=== PATIENT | male | born 1950 | race Caucasian/White ===

== ENCOUNTER 2017-10-21 23:09 | Emergency (ER) | payer MEDICARE, OTHER, SELFPAY ==
[2017-10-21 23:22] VITALS: BP 147/90; PULSE 68; RESP 18; O2SAT 98
[2017-10-21 23:32] VITALS: PULSE 68; RESP 18; O2SAT 98; BMI 31.6
--- NOTE | 2017-10-21 23:32 | ED_ITS ---
HPI - Extremity Injury (Lower) General Chief Complaint: Extremity Injury, Lower Stated Complaint: SEVERE BLEED ON LEFT LEG Time Seen by Provider: 10/21/17 23:28 Source: patient, family, RN notes reviewed and old records reviewed Mode of arrival: ambulatory Limitations: no limitations History of Present Illness HPI Narrative: Patient is a 67-year-old male who presents with left leg bleeding. He originally injured it about 6 weeks ago it was quite a deep laceration he said the stitches stayed in for about 18 days. There are 2 areas that have had scabs on them and not quite healed. 4 days ago when the scab fell off and he was bleeding. He got the bleeding to stop. Today he was out in the yd doing quite a bit of work he took a shower and the said that blood squirted all over the bathroom. They did apply a pressure dressing of the bleeding has now stopped. He denies any new numbness or tingling. Related Data Home Medications Medication Instructions Recorded Confirmed ranitidine HCl 150 mg PO BID #0 05/14/17 aspirin #0 09/03/17 lisinopril-hydrochlorothiazide 1 tab PO QDAY #90 09/03/17 Previous Rx's Medication Instructions Recorded doxycycline hyclate 100 mg PO Q12H #20 cap 09/03/17 hydrocodone-acetaminophen [[place]] 1 - 2 tab PO Q6HP PRN #14 tab 09/03/17 hydrocodone-acetaminophen [[place]] 1 tab PO Q4HP PRN #10 tab 09/10/17 Review of Systems Review of Systems All systems reviewed & are unremarkable except as noted in HPI and below Constitutional Denies chills, Denies fever(s), Denies lethargy and Denies weakness Cardiovascular Denies chest pain, Denies irregular heart rhythm, Denies lightheadedness, Denies palpitations, Denies dyspnea, Denies dyspnea on exertion and Denies orthopnea Respiratory Denies cough, Denies dyspnea, Denies dyspnea on exertion and Denies wheezing Musculoskeletal Reports numbness (At site of laceration from initial injury) Integumentary/Breasts Reports system reviewed and no additional complaints, except as docu Neurologic Reports numbness (At site of laceration from initial injury) and Denies weakness Endocrine Denies palpitations Allergic/Immunologic Denies wheezing [facility] Social History Smoking Status: Never smoker Exam Initial Vital Signs Initial Vital Signs: Vital Signs Pulse Rate 68 10/21/17 23:22 Respiratory Rate 18 10/21/17 23:22 Blood Pressure 147/90 H 10/21/17 23:22 Pulse Oximetry 98 10/21/17 23:22 Const General: cooperative and well developed Nutritional Appearance: well nourished Orientation: alert, awake, oriented x3 and not confused Resp Effort & Inspection: normal respiratory effort and able to speak in complete sentences Cardio Pulses: normal peripheral pulses Skin Other: Scarred laceration noted on left leg. There is a small area less then 0.25cm that is not healed but now has a scab and there is no active bleeding Neuro General: alert, awake and oriented x3 Course Hospital Course: Site of previous bleeding was identified a Surgicel placed and Coban placed. No further bleeding patient was ambulatory. Recommended keeping dressing on for the next few days and possibly needs to see wound care if still not healing. Vital Signs - 8 hr 10/21/17 23:22 10/21/17 23:32 10/21/17 23:58 Pulse Rate 68 68 61 Respiratory Rate 18 18 16 Blood Pressure 131/79 H Blood Pressure [Right Arm] 147/90 H Pulse Oximetry 98 98 96 Discharge Plan Departure Patient Disposition: Home, Self-Care Clinical Impression: Leg laceration Discharge Date/Time: 10/21/17 23:59 Interventions: ED Discharge Assessment Last Done: 10/21/17 23:58 Instructions: DI for Laceration Repair -- Complex Suture Activity Restrictions/Additional Instructions: *You have been diagnosed with left leg laceration *What to do: Recommend dressing on it at all times for the next couple of days , if it continues to be nonhealing you may require wound care evaluation *Take medications as directed *Follow up with your primary care provider in 2-3 days, call wound care tomorrow to schedule appointment in the next 1-2 week *Return to ER if you should have any new, worsening or concerning symptoms Prescriptions: No Action ranitidine HCl 150 MG capsule 150 mg PO BID Qty: 0 RF: 0 aspirin 81 mg Tablet,Delayed Release (Dr/Ec) Qty: 0 RF: 0 lisinopril-hydrochlorothiazide 20 MG/25 MG tablet 1 tab PO QDAY Qty: 90 RF: 0 doxycycline hyclate 100 MG capsule 100 mg PO Q12H Qty: 20 RF: 0 hydrocodone-acetaminophen [[place]] 5 MG/325 MG tablet 1 - 2 tab PO Q6HP PRNQty: 14 RF: 0 hydrocodone-acetaminophen [[place]] 5 MG/325 MG tablet 1 tab PO Q4HP PRNQty: 10 RF: 0 Referrals: Clayton Jimenez MD [Physician] - Samson Morales MD [Primary Care Provider] -
[2017-10-21 23:58] VITALS: BP 131/79; PULSE 61; RESP 16; O2SAT 96
== END 2017-10-21 23:59 | disposition home or self-care (01) ==
PROVIDERS: Emergency Provider Emergency Medicine; Family Provider Family Medicine; PCP Family Medicine
DX: S81.812A Laceration without foreign body, left lower leg, initial encounter (principal)
CPT/HCPCS: 99282

== ENCOUNTER 2017-10-30 06:04 | Emergency (ER) | payer MEDICARE, OTHER, SELFPAY ==
[2017-10-30 06:17] VITALS: BP 108/63; PULSE 74; RESP 16; TEMP 36.4; O2SAT 96
[2017-10-30 06:23] VITALS: BP 108/63; PULSE 74; RESP 16; TEMP 36.4; O2SAT 96; BMI 31.6
--- NOTE | 2017-10-30 06:31 | ED_ITS ---
HPI - Extremity Injury (Lower) General Stated Complaint: Laceration Time Seen by Provider: 10/30/17 06:05 Source: patient Mode of arrival: ambulatory Limitations: no limitations History of Present Illness HPI Narrative: 67-year-old male here for evaluation of bleeding wound to his left lower extremity. Approximately 2 months ago he sustained a chainsaw wound to his left lower extremity. I have seen him here in the emergency department in the past for complications secondary to this and for concerns of infection. Patient states that this morning he woke up to go use the restroom and a spot on the wound started to bleed. He states that this happened approximately 1 week ago and he was also seen in this emergency department for it. He states that by the time he got to the emergency department at that visit the bleeding has stopped. He states that yesterday he saw his primary doctor regarding this and had a consult placed to see the general surgeons for further evaluation. He does not have an appointment yet set up. He states that this morning he got up to go use the restroom and it started to bleed from the same spot the that it did 1 week ago. He states that he held pressure on it but it continued to bleed. His called 911 and he was transported here to the emergency department. He arrived with bandages in place. Related Data Home Medications Medication Instructions Recorded Confirmed ranitidine HCl 150 mg PO BID #0 05/14/17 aspirin #0 09/03/17 lisinopril-hydrochlorothiazide 1 tab PO QDAY #90 09/03/17 Previous Rx's Medication Instructions Recorded doxycycline hyclate 100 mg PO Q12H #20 cap 09/03/17 hydrocodone-acetaminophen [[place]] 1 - 2 tab PO Q6HP PRN #14 tab 09/03/17 hydrocodone-acetaminophen [[place]] 1 tab PO Q4HP PRN #10 tab 09/10/17 Review of Systems Constitutional Denies chills, Denies fever(s), Denies lethargy and Denies weakness Musculoskeletal Comments: Bleeding from the wound on the posterior aspect of his left calf Integumentary/Breasts Comments: Cut to the back of his left calf Neurologic Denies weakness Comments: No change in sensation to left lower extremity PFSH Social History Smoking Status: Never smoker Exam Initial Vital Signs Initial Vital Signs: Vital Signs Temperature 97.6 F 10/30/17 06:17 Pulse Rate 74 10/30/17 06:17 Respiratory Rate 16 10/30/17 06:17 Blood Pressure 108/63 10/30/17 06:17 Pulse Oximetry 96 10/30/17 06:17 Resp Effort & Inspection: normal respiratory effort Cardio Pulses: dorsalis pedis present Other: Capillary refill less than 2 sec Skin Other: Patient with a approximately 15 cm scar to the back of his left calf that is healing well. Has 1 area approximately the midpoint of this that is several mm long where the patient states it was bleeding from this area. Has approximately 3 cm area of swelling under this area. It was not actively bleeding the time of my exam. Neuro Other: Sensation intact to light touch left lower extremity Extrem Other: Left knee unremarkable Left ankle unremarkable See skin section for description of wound to left calf Course Vital Signs - 8 hr 10/30/17 06:17 Temperature 97.6 F Pulse Rate 74 Respiratory Rate 16 Blood Pressure [Right Arm] 108/63 Pulse Oximetry 96 MDM - Extremity Injury (Lower) MDM Narrative Medical decision making narrative: Patient was not bleeding here in the emergency department. Does have a small area of the wound that seems to be not healing very well. Palpation over this area does not have any signs of pulsation or thrills. Patient thought that he could come to the emergency department today to see the surgeon to have this definitively treated. Informed him that his exam today and the fact that it stop bleeding does not warrant an emergent trip to the operating room. Bandages were replaced over the area. He was instructed that following up with a general surgeon was not a reasonable plan. He was given supplies to take care of this if it happened again at home. His is at bedside his discussions. Patient expressed understanding. Discharge Plan Departure Patient Disposition: Home, Self-Care Clinical Impression: Bleeding from wound Instructions: DI for Wound Dehiscence, Skin Wound Activity Restrictions/Additional Instructions: I recommend that you call on Wednesday to schedule an appointment with the general surgeon that was set up for you by your primary doctor. Recommend that you keep a bandage over the area likely discussed and bandaged the area as needed for any future bleeding. Recommend that you hold on taking her aspirin for the next several days as this is potentially complicating the issue. You may return to the emergency department for any new or worsening symptoms Prescriptions: No Action ranitidine HCl 150 MG capsule 150 mg PO BID Qty: 0 RF: 0 aspirin 81 mg Tablet,Delayed Release (Dr/Ec) Qty: 0 RF: 0 lisinopril-hydrochlorothiazide 20 MG/25 MG tablet 1 tab PO QDAY Qty: 90 RF: 0 doxycycline hyclate 100 MG capsule 100 mg PO Q12H Qty: 20 RF: 0 hydrocodone-acetaminophen [[place]] 5 MG/325 MG tablet 1 - 2 tab PO Q6HP PRNQty: 14 RF: 0 hydrocodone-acetaminophen [[place]] 5 MG/325 MG tablet 1 tab PO Q4HP PRNQty: 10 RF: 0
--- NOTE | 2017-10-30 06:32 | PC.NURSE ---
provider applied telfa, gauze roll for direct pressure and alayna bandage.
== END 2017-10-30 06:43 | disposition home or self-care (01) ==
PROVIDERS: Emergency Provider Emergency Medicine; Family Provider Family Medicine; PCP Family Medicine
DX: T81.30XA Disruption of wound, unspecified, initial encounter (principal)
CPT/HCPCS: 99282; 99283

== ENCOUNTER 2018-03-22 12:05 | Emergency (ER) | payer MEDICARE, OTHER, SELFPAY ==
[2018-03-22 12:12] VITALS: BP 131/79; PULSE 86; RESP 22; TEMP 37.4; O2SAT 97
--- NOTE | 2018-03-22 12:41 | ED_ITS ---
HPI - Abdominal Pain General Chief Complaint: Abdominal Pain Stated Complaint: thinks diverticulitis is acting up Time Seen by Provider: 03/22/18 12:19 Source: patient and family Mode of arrival: ambulatory Limitations: no limitations History of Present Illness HPI narrative: Patient complains of left lower quadrant pain since yesterday. He states it feels like his diverticulitis that he has to get before his bowel resection, which was 18-24 months ago. He states he has felt a little nauseated but has not been vomiting. He denies constipation. The patient has had some very loose stools. Patient states he has not had any trouble with diverticulitis since the bowel resection. He denies any fevers, chest pain, shortness breath, or lower extremity swelling. He denies any urinary symptoms. No blood in his stools. MD complaint: abdominal pain Onset (ago): day(s) Pain Consistency: constant Location: LLQ Severity: moderate Severity scale (1-10): 6 Quality: stabbing Radiation: none Migration to: no migration Relieving factors: nothing Exacerbating factors: movement Context: other (See above) Related Data Home Medications Medication Instructions Recorded Confirmed ranitidine HCl 150 mg PO BID #0 05/14/17 03/22/18 aspirin 1 tab PO DAILY #0 09/03/17 03/22/18 lisinopril-hydrochlorothiazide 1 tab PO QDAY #90 09/03/17 03/22/18 Previous Rx's Medication Instructions Recorded hydrocodone-acetaminophen 2 tab PO Q4-6H PRN #20 tab 03/22/18 levofloxacin [Levaquin] 500 mg PO DAILY #14 tab 03/22/18 metronidazole 500 mg PO BID #28 tab 03/22/18 ondansetron [Zofran ODT] 4 mg PO QID PRN #14 tab 03/22/18 Allergies Allergy/AdvReac Type Severity Reaction Status Date / Time No Known Drug Allergies Allergy Verified 03/22/18 13:27 Review of Systems Review of Systems All systems reviewed & are unremarkable except as noted in HPI and below Constitutional Denies chills, Denies fever(s), Denies lethargy and Denies weakness Eyes Denies change in vision, Denies eye discharge, Denies irritation and Denies loss of vision ENT Ears, Nose, Mouth, and Throat: Denies change in voice, Denies neck pain and Denies sore throat Cardiovascular Denies chest pain, Denies irregular heart rhythm, Denies lightheadedness, Denies palpitations, Denies dyspnea, Denies dyspnea on exertion and Denies orthopnea Respiratory Denies cough, Denies dyspnea, Denies dyspnea on exertion and Denies wheezing Gastrointestinal Gastrointestinal: Reports abdominal pain, Denies change in bowel habits, Denies diarrhea, Denies nausea and Denies vomiting Genitourinary Denies hematuria, Denies flank pain, Denies urinary incontinence and Denies urinary urgency Musculoskeletal Denies neck pain Integumentary/Breasts Denies pruritus, Denies erythema, Denies rash and Denies wounds Neurologic Denies confusion, Denies loss of vision and Denies weakness Psychiatric Denies anxiety, Denies confusion, Denies depression, Denies homicidal ideation and Denies suicidal ideation Endocrine Denies palpitations Hematologic/Lymphatic Denies easy bruising Allergic/Immunologic Denies wheezing [facility] Medical History Diverticulitis (Acute) Nephrolithiasis (Chronic) Laceration of lower leg, complicated (Resolved) Hypotension (Resolved) Leg laceration (Resolved) Chest pain (Resolved) Surgical History History of colon resection (Acute) Social History Smoking Status: Never smoker Exam Initial Vital Signs Initial Vital Signs: Vital Signs Temperature 99.4 F 03/22/18 12:12 Pulse Rate 86 03/22/18 12:12 Respiratory Rate 22 03/22/18 12:12 Blood Pressure 131/79 03/22/18 12:12 Pulse Oximetry 97 03/22/18 12:12 Const General: cooperative and well developed Nutritional Appearance: well nourished Orientation: alert, awake, oriented x3 and not confused HENMI Head: normocephalic and atraumatic Ears: external ears normal and TM's normal bilaterally Nose: external nose normal and No nasal discharge Face and sinus: sinuses nontender, face symmetric, no sinus tenderness and No dry mucous membranes Mouth: oral mucosae normal and moist mucous membranes Teeth and gingiva: dentition normal Throat: tonsils normal and uvula midline Eyes General: appearance normal, both eyes and all related structures Eyelids: eyelids normal Conjunctivae: conjunctivae normal Sclera: sclerae normal Pupils: PERRL EOM: EOM intact bilaterally Neck Neck: normal visual inspection, trachea midline, No lymphadenopathy, No midline deformity and No JVD Lymphatic: No lymphedema Chest Chest: normal inspection of the chest Resp Effort & Inspection: normal respiratory effort, able to speak in complete sentences, no respiratory distress and no use of accessory muscles Auscultation: clear to auscultation bilaterally, no rales, no rhonchi and no wheezes Cardio Rate: regular rate Rhythm: regular rhythm Heart Sounds: no click, no gallops, no murmurs and no rubs Pulses: normal peripheral pulses GI Inspection: non-distended Palpation: soft, no hepatosplenomegaly, No guarding, No pulsatile mass and tender (Moderate, left lower quadrant. No rebound or guarding.) Auscultation: normal bowel sounds Back/Spine/Pelvis Back: No CVA tenderness Cervical Spine: cervical ROM normal and No pain with cervical ROM Thoracic/Lumbar Spine: thoracic and lumbar spine normal to inspection Skin General: no rashes or lesions noted, No jaundice and No petechiae Neuro General: alert, oriented x3, gait normal and no focal motor deficits Speech: speech normal Extrem General: full ROM, no clubbing, cyanosis or edema, no pedal edema and no calf tenderness Psych Appearance: well kempt Mental Status: mental status grossly normal Attitude: cooperative Thought Content: normal and suicidality Judgment: judgment good Course Course Narrative: Patient was worked up with laboratory studies, and treated with IV fluids, Dilaudid, and Zofran. I did also feel that he should have a CT to evaluate his abdominal pain, and this was done. Orders Ordered: Discontinued Medications Al Hydrox/Mg Hydrox/Simethicone 20 ml/ Lidocaine HCl 15 ml 0 ml PO NOW ONE Stop: 03/22/18 16:13 Last Admin: 03/22/18 16:28 Dose: 15 ml Hydromorphone HCl (Dilaudid) 1 mg IV NOW ONE Stop: 03/22/18 13:54 Last Admin: 03/22/18 14:16 Dose: 1 mg Sodium Chloride (Normal Saline 0.9%) 1,000 mls @ 1,000 mls/hr IV BOLUS ONE Stop: 03/22/18 13:43 Last Infusion: 03/22/18 14:16 Dose: 0 mls/hr Admin: 03/22/18 12:52 Dose: 1,000 mls/hr Levofloxacin (Levaquin) 500 mg in 100 mls @ 100 mls/hr IV NOW ONE Stop: 03/22/18 15:55 Last Infusion: 03/22/18 16:17 Dose: 0 mls/hr Admin: 03/22/18 15:04 Dose: 100 mls/hr Metronidazole (Flagyl) 500 mg in 100 mls @ 100 mls/hr IV NOW ONE Stop: 03/22/18 15:55 Last Infusion: 03/22/18 17:39 Dose: 0 mls/hr Admin: 03/22/18 15:39 Dose: 100 mls/hr Ondansetron HCl (Zofran) 4 mg IV NOW ONE Stop: 03/22/18 13:54 Last Admin: 03/22/18 17:04 Dose: Not Given Ondansetron HCl (Zofran) 4 mg IV NOW ONE Stop: 03/22/18 17:46 Last Admin: 03/22/18 17:45 Dose: 4 mg Vital Signs - 8 hr 03/22/18 12:12 Temperature 99.4 F Pulse Rate 86 Respiratory Rate 22 Blood Pressure 131/79 Pulse Oximetry 97 MDM - Abdominal Pain Medical Records Attestation: I reviewed the patient's medical records. Lab Data Attestation: I reviewed the patient's lab results. Result diagrams: 03/22/18 12:40 03/22/18 12:40 Lab Results 03/22/18 03/22/18 Range/Units 12:40 12:40 WBC 15.8 H (4.5-11.0) X10^3/uL RBC 4.87 (4.5-5.9) X10^6/uL Hgb 14.9 (13.5-17.5) g/dL Hct 43.6 (41-53) % MCV 89.6 (80-100) fL MCH 30.7 (26-34) PG MCHC 34.3 (30-36) % RDW 16.3 H (11.6-14.8) % Plt Count 276 (150-400) X10^3/uL Neut % (Auto) 82.4 H (50-75) % Lymph % (Auto) 6.4 L (25-40) % Braxton % (Auto) 10.3 (3-14) % Eos % (Auto) 0.4 L (2-4) % Baso % (Auto) 0.5 (0-2) % Neut # (Auto) 94225 H (3984-1753) /uL Sodium 140 (137-145) mmol/L Potassium 4.1 (3.4-5.1) mmol/L Chloride 103 (98-107) mmol/L Carbon Dioxide 27 (22-32) mmol/L BUN 13 (9-20) mg/dL Creatinine 0.70 (0.66-1.25) mg/dL Estimated GFR > 60.0 (>60) mL/min BUN/Creatinine Ratio 18.6 (6-22) Glucose 106 (80-110) mg/dL Calcium 8.7 (8.4-10.2) mg/dL Total Bilirubin 1.3 (0.2-1.3) mg/dL AST 23 (17-59) IU/L ALT 34 (21-72) IU/L Alkaline Phosphatase 92 (38-126) U/L Total Protein 7.1 (6.3-8.2) g/dL Albumin 4.1 (3.5-5.0) g/dL Globulin 3.0 (1.7-4.1) g/dL Albumin/Globulin Ratio 1.4 (1.0-2.8) Imaging Data CT scan - abdomen: Attestation: I personally reviewed and interpreted this imaging study as follows: Radiologist's impression: PROCEDURE: CT ABDOMEN PELVIS W CON INDICATIONS: LLQ abdominal pain TECHNIQUE: After the administration of intravenous contrast, 5 mm thick sections acquired from the diaphragm to the symphysis. 5 mm coronal and sagittal reformats were acquired. For radiation dose reduction, the following was used: automated exposure control, adjustment of mA and/or kV according to patient size. COMPARISON: None. FINDINGS: Image quality: Excellent. ABDOMEN: Lung bases: Lung bases are clear. Heart size is normal. Solid organs: Liver is normal in size and enhancement. There is what likely is a small hemangioma or cyst at the left posterior lateral segment Gallbladder appears normal. Biliary system is non dilated. Pancreas enhances normally. Spleen is normal in size and enhancement. No adrenal nodules. Kidneys demonstrate normal size and enhancement, without hydronephrosis. Peritoneum and bowel: Bowel loops demonstrate normal wall thickness and caliber. No free fluid or air. Nodes and vessels: No retroperitoneal or mesenteric adenopathy by size criteria. Aorta and inferior vena cava are normal in size. Miscellaneous: No ventral hernias. PELVIS: Genitourinary: Bladder wall thickness is normal. Miscellaneous: No inguinal hernias or adenopathy. Relatively prominent inflammation involves the proximal sigmoid colon with acute diverticulitis no peridiverticular abscess. This is proximal to an area of an enteric staple line at the middle third of the sigmoid colon. Bones: No suspicious bony lesions. No vertebral body compression fractures. IMPRESSION: Moderately severe acute diverticulitis without peridiverticular abscess involving the proximal third of the sigmoid colon just proximal to an enteric staple line. A small 1.2 mm cyst or small hemangioma is present at the posterior border of the left lateral hepatic segment. Normal-appearing gallbladder, no sign of appendicitis. Dictated by: Charlie Cummings M.D. on 03/22/2018 at 14:23 Approved by: Charlie Cummings M.D. on 03/22/2018 at 14:26 [facility] Narrative Medical decision making narrative: Patient was found to have diverticulitis, non perforated, on his CT scan. He was started on antibiotics for this, and was advised of the diagnosis. We have discussed home management of his symptoms , as well as the need for antibiotics at home, and we have also discussed the usual indications for return. Patient is stable for discharge home. Discharge Plan Departure Patient Disposition: Home Clinical Impression: Diverticulitis Discharge Date/Time: 03/22/18 18:01 Interventions: ED Discharge Assessment Last Done: 03/22/18 17:50 Instructions: DI for Diverticulitis Prescriptions: New hydrocodone-acetaminophen 5-325 mg tablet 2 tab PO Q4-6H PRN (Reason: pain) Qty: 20 RF: 0 metronidazole 500 mg tablet 500 mg PO BID Qty: 28 RF: 0 levofloxacin [Levaquin] 500 mg tablet 500 mg PO DAILY Qty: 14 RF: 0 ondansetron [Zofran ODT] 4 mg tablet,disintegrating 4 mg PO QID PRN (Reason: nausea and vomiting) Qty: 14 RF: 0 No Action ranitidine HCl 150 MG capsule 150 mg PO BID Qty: 0 RF: 0 aspirin 81 mg Tablet,Delayed Release (Dr/Ec) 1 tab PO DAILY Qty: 0 RF: 0 lisinopril-hydrochlorothiazide 20 MG/25 MG tablet 1 tab PO QDAY Qty: 90 RF: 0 Referrals: Samson Morales MD [Primary Care Provider] -
[2018-03-22] MEDS: SODIUM CHLORIDE 0.9% 1,000 ML 1000 ML IV (12:52)
[2018-03-22 12:54] LABS: Add Manual Diff / Slide Review NO; Basophils Percent Auto 0.5 % (0-2); Eosinophils Percent Auto 0.4 % (2-4); Hematocrit 43.6 % (41-53); Hemoglobin 14.9 g/dL (13.5-17.5); Lymphocytes Percent Auto 6.4 % (25-40); Mean Corpuscular HGB Conc 34.3 % (30-36); Mean Corpuscular Hemoglobin 30.7 PG (26-34); Mean Corpuscular Volume 89.6 fL (80-100); Monocytes Percent Auto 10.3 % (3-14); Neutrophils Absolute Auto 13000 /uL (3000-5900); Neutrophils Percent Auto 82.4 % (50-75); Platelet Count 276 X10^3/uL (150-400); Red Blood Cell Count 4.87 X10^6/uL (4.5-5.9); Red Cell Distribution Width 16.3 % (11.6-14.8); White Blood Cell Count 15.8 X10^3/uL (4.5-11.0)
[2018-03-22 12:59] LABS: Alanine Aminotransferase 34 IU/L (21-72); Albumin 4.1 g/dL (3.5-5.0); Albumin Globulin Ratio 1.4 (1.0-2.8); Alkaline Phosphatase 92 U/L (38-126); Aspartate Aminotransferase 23 IU/L (17-59); BUN Creatinine Ratio 18.6 (6-22); Bilirubin Total 1.3 mg/dL (0.2-1.3); Blood Urea Nitrogen 13 mg/dL (9-20); Calcium 8.7 mg/dL (8.4-10.2); Carbon Dioxide 27 mmol/L (22-32); Chloride 103 mmol/L (98-107); Estimated Glomerular Filt Rate > 60.0 mL/min (>60); Glucose 106 mg/dL (80-110); HEMOLYSIS 26 (0-50); Potassium 4.1 mmol/L (3.4-5.1); Sodium 140 mmol/L (137-145); Total Protein 7.1 g/dL (6.3-8.2)
--- NOTE | 2018-03-22 14:04 | DI.CT.S_ITS ---
PROCEDURE: CT ABDOMEN PELVIS W CON INDICATIONS: LLQ abdominal pain TECHNIQUE: After the administration of intravenous contrast, 5 mm thick sections acquired from the diaphragm to the symphysis. 5 mm coronal and sagittal reformats were acquired. For radiation dose reduction, the following was used: automated exposure control, adjustment of mA and/or kV according to patient size. COMPARISON: None. FINDINGS: Image quality: Excellent. ABDOMEN: Lung bases: Lung bases are clear. Heart size is normal. Solid organs: Liver is normal in size and enhancement. There is what likely is a small hemangioma or cyst at the left posterior lateral segment Gallbladder appears normal. Biliary system is non dilated. Pancreas enhances normally. Spleen is normal in size and enhancement. No adrenal nodules. Kidneys demonstrate normal size and enhancement, without hydronephrosis. Peritoneum and bowel: Bowel loops demonstrate normal wall thickness and caliber. No free fluid or air. Nodes and vessels: No retroperitoneal or mesenteric adenopathy by size criteria. Aorta and inferior vena cava are normal in size. Miscellaneous: No ventral hernias. PELVIS: Genitourinary: Bladder wall thickness is normal. Miscellaneous: No inguinal hernias or adenopathy. Relatively prominent inflammation involves the proximal sigmoid colon with acute diverticulitis no peridiverticular abscess. This is proximal to an area of an enteric staple line at the middle third of the sigmoid colon. Bones: No suspicious bony lesions. No vertebral body compression fractures. IMPRESSION: Moderately severe acute diverticulitis without peridiverticular abscess involving the proximal third of the sigmoid colon just proximal to an enteric staple line. A small 1.2 mm cyst or small hemangioma is present at the posterior border of the left lateral hepatic segment. Normal-appearing gallbladder, no sign of appendicitis. Dictated by: Charlie Cummings M.D. on 03/22/2018 at 14:23 Approved by: Charlie Cummings M.D. on 03/22/2018 at 14:26
[2018-03-22 14:16] VITALS: BP 120/77; PULSE 73; RESP 16; O2SAT 98
[2018-03-22] MEDS: HYDROMORPHONE 1 MG INJ IV (14:16)
[2018-03-22] MEDS: levoFLOXacin 500 MG/100 ML PIGGYBACK 100 MG IV (15:04)
[2018-03-22 15:19] VITALS: BP 103/56; PULSE 73; RESP 14; O2SAT 95
[2018-03-22] MEDS: metroNIDAZOLE 500 MG/100 ML PIGGYBACK 100 MG IV (15:39)
[2018-03-22 16:12] VITALS: BP 97/68
[2018-03-22] MEDS: MAG HYDROX/ALUMINUM/SIMETH SUS 20 ML, LIDOCAINE VISCOUS 2% 15 ML PO (16:28)
[2018-03-22 17:45] VITALS: BP 116/66; PULSE 85; RESP 15; TEMP 36.6; O2SAT 96
[2018-03-22] MEDS: ONDANSETRON 4 MG/2 ML INJ IV (17:45)
== END 2018-03-22 18:01 | disposition home or self-care (01) ==
PROVIDERS: Emergency Provider Emergency Medicine; Family Provider Family Medicine; PCP Family Medicine
DX: K57.92 Diverticulitis of intestine, part unspecified, without perforation or abscess without bleeding (principal)
CPT/HCPCS: 74177; 80053; 85025; 96361; 96365; 96366; 96368; 96375; 99283; 99285; J1170; J1956; J2405; Q9967

== ENCOUNTER 2018-11-15 19:03 | Emergency (ER) | payer MEDICARE, OTHER, SELFPAY ==
[2018-11-15 19:15] VITALS: BP 146/88; PULSE 78; RESP 16; TEMP 37; O2SAT 97; BMI 30.6
--- NOTE | 2018-11-15 19:22 | ED.URI ---
HPI - URI/Sore Throat <Peri Leroy PA-C - Last Filed: 11/15/18 20:29> General Chief Complaint: Headache Stated Complaint: RT SIDE OF FACE ACHES, SINUS PAIN Time Seen by Provider: 11/15/18 19:04 Source: patient Mode of arrival: ambulatory History of Present Illness HPI Narrative: This 68-year-old male complains of recurrent sinus infection. He states he has had cough, mostly dry but occasionally producing some phlegm, for over a week. He has not had any dyspnea or wheeze. He denies chest pain. states she thinks he had a temp 3 days ago because he felt quite warm, but no recorded fever at home. He states that he has pain in his face, mainly the right she and in his upper teeth that has worsened over several days. His ears feel somewhat congestion but not painful. He does not have nasal congestion or headache. Minimal watery eyes, no vision change. No weakness or mentation change. No recent travel or known exposures. Related Data Home Medications Medication Instructions Recorded Confirmed ranitidine HCl 150 mg PO BID #0 05/14/17 03/22/18 aspirin 1 tab PO DAILY #0 09/03/17 03/22/18 lisinopril-hydrochlorothiazide 1 tab PO QDAY #90 09/03/17 03/22/18 Previous Rx's Medication Instructions Recorded hydrocodone-acetaminophen 2 tab PO Q4-6H PRN #20 tab 03/22/18 levofloxacin [Levaquin] 500 mg PO DAILY #14 tab 03/22/18 metronidazole 500 mg PO BID #28 tab 03/22/18 ondansetron [Zofran ODT] 4 mg PO QID PRN #14 tab 03/22/18 amoxicillin-pot clavulanate 1 tab PO Q12H #20 tab 11/15/18 Allergies Allergy/AdvReac Type Severity Reaction Status Date / Time No Known Drug Allergies Allergy Verified 11/15/18 19:14 Review of Systems <Peri Leroy PA-C - Last Filed: 11/15/18 20:29> Review of Systems ROS Unobtainable: All systems reviewed & are unremarkable except as noted in HPI and below PFSH <Peri Leroy PA-C - Last Filed: 11/15/18 20:29> Medical History Diverticulitis (Acute) Nephrolithiasis (Chronic) Laceration of lower leg, complicated (Resolved) Hypotension (Resolved) Leg laceration (Resolved) Chest pain (Resolved) Surgical History History of colon resection (Acute) Social History Smoking Status: Never smoker Social History Smoking Status: Never smoker Exam <Peri Leroy PA-C - Last Filed: 11/15/18 20:29> Narrative Exam Narrative: GENERAL APPEARANCE: Patient sitting comfortably, in no distress. HEAD: Localized right maxillary tenderness EYES: PERRL, EOMI. EARS: Normal auditory canals, TMS intact with slightly dull light reflexes. ORAL CAVITY: Normal oropharynx. No broken teeth, gingival inflammation or caries THROAT: PND noted, no erythema or exudate NECK/THYROID: Neck supple, full range of motion, no cervical lymphadenopathy. LUNGS: Clear to auscultation bilaterally, clear to percussion, no cough on exam. HEART: RRR without murmur, nl S1, S2, no S3 or S4. NEUROLOGIC: Alert and oriented, normal speech, gait, coordination Initial Vital Signs Initial Vital Signs: Vital Signs Temperature 98.6 F 11/15/18 19:15 Pulse Rate 78 11/15/18 19:15 Respiratory Rate 16 11/15/18 19:15 Blood Pressure 146/88 H 11/15/18 19:15 Pulse Oximetry 97 11/15/18 19:15 <Thomas Vieira DO - Last Filed: 11/15/18 21:47> Initial Vital Signs Initial Vital Signs: Vital Signs Temperature 98.6 F 11/15/18 19:15 Pulse Rate 78 11/15/18 19:15 Respiratory Rate 16 11/15/18 19:15 Blood Pressure 146/88 H 11/15/18 19:15 Pulse Oximetry 97 11/15/18 19:15 Course <Peri Leroy PA-C - Last Filed: 11/15/18 20:29> Additional Information: Patient has had upper respiratory symptoms for more than 1 week, worsening localized sinus pain for several days similar to previous infections. Explained that most often these are viral and antibiotics not needed, however he is going to be traveling so was given a prescription to fill if symptoms are not improving as expected on their own. He agrees to return if any acutely worsening symptoms and follow up with PCP if not getting better Vital Signs - 8 hr 11/15/18 19:15 Temperature 98.6 F Pulse Rate 78 Respiratory Rate 16 Blood Pressure 146/88 H Pulse Oximetry 97 <Thomas Vieira DO - Last Filed: 11/15/18 21:47> Vital Signs - 8 hr 11/15/18 19:15 Temperature 98.6 F Pulse Rate 78 Respiratory Rate 16 Blood Pressure 146/88 H Pulse Oximetry 97 Discharge Plan Departure Patient Disposition: Home Clinical Impression: Bronchitis Sinusitis Qualifiers: Sinusitis location: maxillary Chronicity: acute Recurrence: not specified as recurrent Qualified Code(s): J01.00 - Acute maxillary sinusitis, unspecified Discharge Date/Time: 11/15/18 19:49 Interventions: ED Discharge Assessment Last Done: 11/15/18 19:47 Instructions: DI for Sinusitis, DI for Acute Bronchitis, DI for Sinus Headache Activity Restrictions/Additional Instructions: More than 90% of the time, sinus infections (sinusitis) and bronchitis (chest cold) are caused by viruses and resolve on their own in 7-14 days. Since you have had multiple episodes of sinusitis in the past that have not resolved without antibiotics and will be traveling, I have given you prescription to fill if you are not improving as expected. You can use an [id number] antihistamine such as Zyrtec (cetirizine) to help with cough and postnasal drip, and pseudoephedrine to help with congestion. Please continue your saline nasal spray. Please return if you acutely worsening symptoms as we talked about, or see your PCP if not resolving as expected Prescriptions: New amoxicillin-pot clavulanate 875-125 mg tablet 1 tab PO Q12H Qty: 20 RF: 0 No Action ranitidine HCl 150 MG capsule 150 mg PO BID Qty: 0 RF: 0 aspirin 81 mg Tablet,Delayed Release (Dr/Ec) 1 tab PO DAILY Qty: 0 RF: 0 lisinopril-hydrochlorothiazide 20 MG/25 MG tablet 1 tab PO QDAY Qty: 90 RF: 0 hydrocodone-acetaminophen 5-325 mg tablet 2 tab PO Q4-6H PRN (Reason: pain) Qty: 20 RF: 0 metronidazole 500 mg tablet 500 mg PO BID Qty: 28 RF: 0 levofloxacin [Levaquin] 500 mg tablet 500 mg PO DAILY Qty: 14 RF: 0 ondansetron [Zofran ODT] 4 mg tablet,disintegrating 4 mg PO QID PRN (Reason: nausea and vomiting) Qty: 14 RF: 0 Referrals: Samson Morales MD [Primary Care Provider] - <Thomas Vieira DO - Last Filed: 11/15/18 21:47> Cosign ED Attending Rondaature Attestation: I was available for consultation during this patient's emergency department encounter
== END 2018-11-15 19:49 | disposition home or self-care (01) ==
PROVIDERS: Emergency Provider Internal Medicine; Family Provider Family Medicine; PCP Family Medicine
DX: J40 Bronchitis, not specified as acute or chronic (principal); J01.00 Acute maxillary sinusitis, unspecified
CPT/HCPCS: 99282

== ENCOUNTER 2024-03-18 18:48 | Emergency (ER) | payer MEDICARE, OTHER, SELFPAY ==
[2024-03-18 18:50] VITALS: BP 157/84; PULSE 65; RESP 16; TEMP 36.6; O2SAT 97; BMI 29.8
--- NOTE | 2024-03-18 18:55 | DI.RAD.S_ITS ---
PROCEDURE: XR FINGER LT MIN 2V INDICATIONS: lacerated with table saw TECHNIQUE: AP hand, 2 views of the 3rd finger(s) acquired. COMPARISON: None. FINDINGS: Bones: Overlying bandaging limits evaluation. There appears to be a 3rd distal tuft fracture. No suspicious bony lesions. Soft tissues: No suspicious soft tissue calcifications. IMPRESSION: Overlying bandaging limits evaluation. There appears to be a 3rd distal tuft fracture. Small density projecting over the 2nd digit measuring 2 mm, foreign body versus small sclerotic focus. Dictated by: Ibrahima Colmenares M.D. on 03/18/2024 at 19:21 Approved by: Ibrahima Colmenares M.D. on 03/18/2024 at 19:22
--- NOTE | 2024-03-18 21:04 | DI.RAD.S_ITS ---
PROCEDURE: XR FINGER LT MIN 2V INDICATIONS: repeat with dressing removed, injury TECHNIQUE: AP hand, 2 views of the 3rd finger(s) acquired. COMPARISON: [facility], , XR FINGER LT MIN 2V, 03/18/2024, 18:58. FINDINGS: Bones: There is a minimal chip fracture seen involving the distal aspect of the distal phalanx of the 3rd finger. Degenerative changes are seen throughout, which are most prominent involving the 1st carpometacarpal joint. Milder degenerative changes are seen elsewhere. Soft tissues: Associated soft tissue injury seen. Second finger radiopaque foreign body again seen. IMPRESSION: Minimal chip fracture seen involving the distal aspect of the distal phalanx of the 3rd finger, with associated overlying soft tissue injury. Dictated by: Nick Linares M.D. on 03/18/2024 at 20:44 Approved by: Nick Linares M.D. on 03/18/2024 at 20:45
--- NOTE | 2024-03-18 23:10 | PC.NURSE ---
pt was using a saw when the tip of the 3rd digit of the left hand was caught in the blade bleeding is controlled at this time, pt's digit is rinsed with saline and placed in saline to soak, pt given warm blankets and delay explained
--- NOTE | 2024-03-18 23:55 | ED_ITS ---
HPI - Extremity Injury (Upper) General Chief Complaint: Extremity Injury, Upper Stated Complaint: cut tip of finger off Time Seen by Provider: 03/18/24 23:55 History of Present Illness HPI narrative: 73-year-old male right-handed was working with a table saw cutting wood proximally 6:00 p.m. earlier this evening, cut the end of his left 3rd finger with a table saw, laceration. No other injuries. He believes his last tetanus shot was less than 5 years ago. No known drug allergies. Related Data Home Medications Medication Instructions Recorded Confirmed ranitidine HCl 150 mg capsule 150 mg PO BID ##0 05/14/17 03/22/18 aspirin 81 mg tablet,delayed 1 tab PO DAILY ##0 09/03/17 03/22/18 release lisinopril 20 1 tab PO QDAY ##90 09/03/17 03/22/18 mg-hydrochlorothiazide 25 mg tablet Previous Rx's Medication Instructions Recorded hydrocodone 5 mg-acetaminophen 325 2 tab PO Q4-6H PRN pain #20 tabs 03/22/18 mg tablet levofloxacin 500 mg tablet 500 mg PO DAILY #14 tabs 03/22/18 (Levaquin) metronidazole 500 mg tablet 500 mg PO BID #28 tabs 03/22/18 ondansetron 4 mg disintegrating 4 mg PO QID PRN nausea and 03/22/18 tablet (Zofran ODT) vomiting #14 tabs amoxicillin 875 mg-potassium 1 tab PO Q12H #20 tabs 11/15/18 clavulanate 125 mg tablet cephalexin 500 mg capsule 500 mg PO QID 7 days #28 caps 03/19/24 Allergies Allergy/AdvReac Type Severity Reaction Status Date / Time No Known Drug Allergies Allergy Verified 11/15/18 19:14 Review of Systems Review of Systems Narrative: see HPI Patient History Medical History (Updated 03/19/24 @ 00:12 by Jean Claude Torres MD) Diverticulitis Chest pain Leg laceration Hypotension Laceration of lower leg, complicated Nephrolithiasis Surgical History History of colon resection Social History Smoking Status: Never smoker Smoking Status: Never smoker Substance Use Type: does not use Exam Narrative Exam Narrative: GENERAL: Well-developed patient, in mild distress. HEAD: Atraumatic. Normocephalic. EYES: Pupils equal round and reactive. Extraocular motions intact. No scleral icterus. No injection or drainage. ENT: Nose without bleeding, purulent drainage. Throat without erythema, tonsillar hypertrophy or exudate. Airway patent. NECK: Trachea midline. Non tender CARDIOVASCULAR: Regular rate and rhythm without murmurs, gallops, or rubs. RESPIRATORY: Clear to auscultation. Breath sounds equal bilaterally. No wheezes, rales, or rhonchi. GASTROINTESTINAL: Abdomen soft, non-tender, nondistended. EXTREMITIES: Left 3rd/middle fingertip with skin distal tip avulsion few mm depth, could not palpate or visualize any bony phalynx end, did take away 1 or 2 mm of nail, no subungual hematoma, no swelling of the digit. No streaking. No hand edema, no streaking to the wrist forearm no other injuries to that extremity. BACK: Nontender without deformity or crepitance. No flank tenderness. NEURO: AOx3. Motor functions grossly nonfocal SKIN: No rash or erythema of visible areas Initial Vital Signs Initial Vital Signs: Vital Signs Temperature 98 F 03/18/24 18:50 Pulse Rate 65 03/18/24 18:50 Respiratory Rate 16 03/18/24 18:50 Blood Pressure 157/84 H 03/18/24 18:50 Pulse Oximetry 97 03/18/24 18:50 Oxygen Delivery Method Room Air 03/18/24 18:50 Course Orders Ordered: ED Orders 03/18/24 18:55 XR finger LT min 2V Stat 03/18/24 21:04 XR finger LT min 2V Stat Discontinued Medications Cephalexin HCl (Cephalexin 250 Mg Capsule) 500 mg PO NOW ONE Stop: 03/19/24 00:06 Last Admin: 03/19/24 00:15 Dose: 500 mg Documented By: Tramadol HCl (Tramadol 50 Mg Tablet) 50 mg PO NOW ONE Stop: 03/19/24 00:06 Last Admin: 03/19/24 00:15 Dose: 50 mg Documented By: Tramadol HCl (Tramadol 50 Mg Prepack) 1 bottle MISC DIRECTED ONE Stop: 03/19/24 00:06 Last Admin: 03/19/24 00:15 Dose: 1 bottle Documented By: Vital Signs Vital signs: Vital Signs - 8 hr 03/19/24 00:40 Temperature 98.4 F Pulse Rate 89 Respiratory Rate 12 Blood Pressure 126/78 Pulse Oximetry 98 Oxygen Delivery Method Room Air MDM - Extremity Injury (Upper) Imaging Data Extremity x-ray #1: Radiologist's Impression: [address] [address] XRay Report Signed Patient: Thomas Soares MR#: [id number] : 1950 Acct:[id number] Age/Sex: 73 / M Date of Service: 03/18/24 Loc: ED Accession Number: [id number] Procedure: XR finger LT min 2V Ordering Provider: Jean Claude Torres MD PROCEDURE: XR FINGER LT MIN 2V INDICATIONS: lacerated with table saw TECHNIQUE: AP hand, 2 views of the 3rd finger(s) acquired. COMPARISON: None. FINDINGS: Bones: Overlying bandaging limits evaluation. There appears to be a 3rd distal tuft fracture. No suspicious bony lesions. Soft tissues: No suspicious soft tissue calcifications. IMPRESSION: Overlying bandaging limits evaluation. There appears to be a 3rd distal tuft f racture. Small density projecting over the 2nd digit measuring 2 mm, foreign body versus small sclerotic focus. Dictated by: Ibrahima Colmenares M.D. on 03/18/2024 at 19:21 Approved by: Ibrahima Colmenares M.D. on 03/18/2024 at 19:22 Extremity x-ray #2: Radiologist's Impression: Close Finger X-Ray (Signed) Nick Linares - 03/18/24 Finger X-Ray (Signed) Ibrahima Colmenares - 03/18/24 Launch?Image [address] [address] XRay Report Signed Patient: Thomas Soares MR#: [id number] : 1950 Acct:[id number] Age/Sex: 73 / M Date of Service: 03/18/24 Loc: ED Accession Number: [id number] Procedure: XR finger LT min 2V Ordering Provider: Jean Claude Torres MD PROCEDURE: XR FINGER LT MIN 2V INDICATIONS: repeat with dressing removed, injury TECHNIQUE: AP hand, 2 views of the 3rd finger(s) acquired. COMPARISON: [facility], CR, XR FINGER LT MIN 2V, 03/18/2024, 18:58. FINDINGS: Bones: There is a minimal chip fracture seen involving the distal aspect of the distal phalanx of the 3rd finger. Degenerative changes are seen throughout, which are most prominent involving the 1st carpometacarpal joint. Milder degenerative changes are seen elsewhere. Soft tissues: Associated soft tissue injury seen. Second finger radiopaque foreign body again seen. IMPRESSION: Minimal chip fracture seen involving the distal aspect of the distal phalanx of the 3rd finger, with associated overlying soft tissue injury. Dictated by: Nick Linares M.D. on 03/18/2024 at 20:44 Approved by: Nick Linares M.D. on 03/18/2024 at 20:45 MDM Narrative Medical decision making narrative: 33-year-old male with table saw injury, left 3rd finger tip avulsion, x-ray initial study showed foreign body concern but likely due to dressing, dressing removed, repeat x-ray shows possible small minimal chip fracture distal aspect distal phalanx of the 3rd finger, see radiology report. I could not palpate or visualize any bony fragment. But concern for adjacent nearby fracture, possibly open. Wound irrigated, dressed with antibiotic ointment, Xeroform, finger bulky wrap dressing. First dose oral Keflex given, prescription for further antibiotic course. Follow up with Orthopedic surgery on Wednesday morning advised. Contact information given for office of Dr. Lin on-call. Patient believes his tetanus was less than 5 years ago Discharge Plan Departure Patient Disposition: Home Clinical Impression: Laceration of finger, Fracture of distal phalanx of finger, open Activity Restrictions/Additional Instructions: Table saw fingertip injury to the left middle finger, involving some of the nail, no obvious hematoma underneath the nail. X-ray suspicious for small avulsion like fingertip fracture. I could not visualize or palpate open bone, however proximity of avulsion skin laceration and fracture suspicious for an open fracture. Or antibiotics therefore used. First dose Keflex antibiotic given in the emergency department, further course of antibiotic for your pharmacy. Take pain medications as needed. Dressing applied. Follow up with Orthopedic surgery on Wednesday for repeat examination and likely dressing change. Prescriptions: New cephalexin 500 mg capsule 500 mg PO QID 7 Days Qty: 28 0RF No Action ranitidine HCl 150 MG capsule 150 mg PO BID Qty: 0 aspirin 81 mg Tablet,Delayed Release (Dr/Ec) 1 tab PO DAILY Qty: 0 lisinopril-hydrochlorothiazide 20 MG/25 MG tablet 1 tab PO QDAY Qty: 90 hydrocodone-acetaminophen 5-325 mg tablet 2 tab PO Q4-6H PRN (Reason: pain) Qty: 20 0RF metronidazole 500 mg tablet 500 mg PO BID Qty: 28 0RF levofloxacin [Levaquin] 500 mg tablet 500 mg PO DAILY Qty: 14 0RF ondansetron [Zofran ODT] 4 mg tablet,disintegrating 4 mg PO QID PRN (Reason: nausea and vomiting) Qty: 14 0RF amoxicillin-pot clavulanate 875-125 mg tablet 1 tab PO Q12H Qty: 20 0RF Referrals: Nancy Cabezas MD [Physician] - Samson Morales MD [Primary Care Provider] - Stand Alone Forms: Patient Portal/API
[2024-03-19] MEDS: cephALEXin 250 MG CAPSULE 500 MG PO (00:15)
[2024-03-19] MEDS: TRAMADOL 50 MG PREPACK 1 BOTTLE MISC (00:15)
[2024-03-19] MEDS: TRAMADOL 50 MG TABLET PO (00:15)
[2024-03-19 00:40] VITALS: BP 126/78; PULSE 89; RESP 12; TEMP 36.9; O2SAT 98
== END 2024-03-19 00:41 | disposition home or self-care (01) ==
PROVIDERS: Emergency Provider Emergency Medicine; Family Provider Family Medicine; PCP Family Medicine
DX: S61.313A Laceration without foreign body of left middle finger with damage to nail, initial encounter (principal); W31.2XXA Contact with powered woodworking and forming machines, initial encounter; Y93.89 Activity, other specified
CPT/HCPCS: 73140; 99283

== ENCOUNTER 2024-09-29 22:39 | Emergency (ER) | payer MEDICARE, OTHER, SELFPAY ==
[2024-09-29 23:00] VITALS: BP 196/96; PULSE 61; RESP 18; TEMP 37.1; O2SAT 98; BMI 31.6
[2024-09-29 23:07] VITALS: BP 187/91
[2024-09-29 23:08] VITALS: PULSE 61; O2SAT 98
[2024-09-29 23:26] LABS: Add Manual Diff / Slide Review NO; Basophils Absolute Auto 100 /uL (0-100); Basophils Percent Auto 0.5 % (0-2); Eosinophils Absolute Auto 100 /uL (0-450); Eosinophils Percent Auto 1.1 % (2-4); Hematocrit 44.1 % (41-53); Hemoglobin 15.3 g/dL (13.5-17.5); Lymphocytes Absolute Auto 1400 /uL (1100-4500); Lymphocytes Percent Auto 13.4 % (25-40); Mean Corpuscular HGB Conc 34.6 % (30-36); Mean Corpuscular Hemoglobin 31.7 PG (26-34); Mean Corpuscular Volume 91.6 fL (80-100); Monocytes Absolute Auto 900 /uL (0-900); Neutrophils Absolute Auto 7900 /uL (1500-7000); Platelet Count 318 X10^3/uL (150-400); Red Blood Cell Count 4.81 X10^6/uL (4.5-5.9); Red Cell Distribution Width 14.4 % (11.6-14.8); White Blood Cell Count 10.4 X10^3/uL (4.5-11.0)
[2024-09-29] MEDS: ONDANSETRON 4 MG/2 ML INJ IV (23:26)
[2024-09-29 23:31] LABS: Lactate (Lactic Acid) 1.5 mmol/L (0.7-2.1)
[2024-09-29 23:32] LABS: Alanine Aminotransferase 32 IU/L (<50); Albumin 4.4 g/dL (3.5-5.0); Albumin Globulin Ratio 1.6 (1.0-2.8); Alkaline Phosphatase 102 U/L (38-126); Aspartate Aminotransferase 30 IU/L (17-59); BUN Creatinine Ratio 22.2 (6-22); Bilirubin Total 0.6 mg/dL (0.2-1.3); Blood Urea Nitrogen 20 mg/dL (9-20); Calcium 8.9 mg/dL (8.4-10.2); Carbon Dioxide 27 mmol/L (22-32); Chloride 104 mmol/L (98-107); Estimated Glomerular Filt Rate > 60 mL/min (>60); Globulin 2.7 g/dL (1.7-4.1); Glucose 123 mg/dL (70-99); HEMOLYSIS < 15 (0-50); Lipase 68 U/L (23-300); Potassium 3.6 mmol/L (3.4-5.1); Sodium 140 mmol/L (137-145); Total Protein 7.1 g/dL (6.3-8.2)
--- NOTE | 2024-09-29 23:37 | DI.CT.S_ITS ---
PROCEDURE: CT ABDOMEN PELVIS W CON INDICATIONS: abd pain/ hx of diverticulitis TECHNIQUE: After the administration of intravenous contrast, axial sections acquired from the lung bases to the pubic symphysis. Coronal and sagittal reformats were performed. For radiation dose reduction, the following was used: automated exposure control, adjustment of mA and/or kV according to patient size. COMPARISON: [facility], CT, CT ABDOMEN PELVIS W CON, 03/22/2018, 13:59. FINDINGS: Image quality: Diagnostic. Lower Chest: No significant findings. ABDOMEN: Liver: Cyst in the left liver is unchanged. Gallbladder: No radiopaque gallstones or wall thickening. Biliary ducts: No biliary dilation. Pancreas: No ductal dilation. Spleen: Size is within normal limits. Adrenal Glands: No adrenal nodules. Kidneys and Ureters: Obstructing calculus in the proximal right ureter measuring 0.6 cm, (2/81). Additional small nonobstructing right kidney stone x1; left x2. Mild left hydronephrosis. No solid renal mass. Stomach and Bowel: Sigmoid anastomosis. Area of suspected fat necrosis in the right pelvis is unchanged. No diverticulitis. The appendix is not dilated. No small bowel obstruction. Tiny hiatal hernia. The stomach is within normal limits. Peritoneum: No abnormal intraperitoneal fluid. No free air. Ventral Wall: Fat containing ventral abdominal wall hernia. Abdominal Nodes: No retroperitoneal or mesenteric adenopathy by size criteria. Vessels: Aorta and inferior vena cava are normal in size. PELVIS: Pelvic Organs: Prostatomegaly. Bladder: Stone in the urinary bladder measuring 1.8 cm. Pelvic Nodes: No enlarged lymph nodes. Miscellaneous: No inguinal hernias are seen. Bones: No aggressive osseous abnormality. IMPRESSION: 1. Obstructing right kidney stone in the proximal ureter measuring 0.6 cm. 2. Additional small nonobstructing kidney stones bilaterally. Stone in the urinary bladder. Dictated by: Albert Betts M.D. on 09/30/2024 at 0:50 Approved by: Albert Betts M.D. on 09/30/2024 at 1:01
[2024-09-29 23:41] LABS: Ictotest Urine Negative (Negative)
[2024-09-29] MEDS: KETOROLAC 30 MG/ML VIAL IV (23:43)
[2024-09-29] MEDS: LACTATED RINGERS 1,000 ML 1000 ML IV (23:44)
[2024-09-29 23:49] LABS: Bacteria Urine None Seen; Culture Indicated Urine Cult Not Indicated; Hyaline Casts Urine 0-1/LPF; RBC Urine 10-30/HPF (0-5/HPF); Squamous Epithelial Cell Urine 1-5 /HPF (0-5/HPF); Urine Volume 10mL (spun); WBC Urine 0-1/HPF (0-5/HPF)
[2024-09-30] VITALS: BP 172/80; PULSE 60; O2SAT 99
--- NOTE | 2024-09-30 00:20 | ED.ABDPAIN ---
HPI - Abdominal Pain General Chief Complaint: Abdominal Pain Stated Complaint: abd px Time Seen by Provider: 09/29/24 22:55 Source: patient Mode of arrival: Ambulatory History of Present Illness HPI narrative: 74-year-old gentleman history of kidney stones diverticulitis partial colon resection high blood pressure just drove back from [place] and started to have right flank pain radiating to the right lower quadrant along with multiple bouts of nonbilious nonbloody nausea and vomiting. He did have a bowel movement prior to his arrival here but denies any blood in the stool or urine. Other than what is stated 14 point review of system is negative. Related Data Home Medications Medication Instructions Recorded Confirmed lisinopril 20 1 tab PO QDAY ##90 09/03/17 09/29/24 mg-hydrochlorothiazide 25 mg tablet Previous Rx's Medication Instructions Recorded hydrocodone 5 mg-acetaminophen 325 1 tab PO Q6H PRN pain #20 tabs 09/30/24 mg tablet tamsulosin 0.4 mg capsule (Flomax) 0.4 mg PO DAILY #30 caps 09/30/24 Allergies Allergy/AdvReac Type Severity Reaction Status Date / Time No Known Drug Allergies Allergy Verified 11/15/18 19:14 Review of Systems Review of Systems ROS Unobtainable: All systems reviewed & are unremarkable except as noted in HPI and below Patient History Medical History (Updated 09/30/24 @ 01:16 by Isrrael Castro, DO) Diverticulitis Chest pain Leg laceration Hypotension Laceration of lower leg, complicated Nephrolithiasis Surgical History History of colon resection Social History Smoking Status: Never smoker Smoking Status: Never smoker Exam Narrative Exam Narrative: GENERAL: [74] year old patient appears stated age. Well-developed patient, in mild distress. HEAD: Atraumatic. Normocephalic. EYES: Pupils equal round and reactive. Extraocular motions intact. No scleral icterus. No injection or drainage. ENT: Nose without bleeding, purulent drainage. Throat without erythema, tonsillar hypertrophy or exudate. Airway patent. NECK: Trachea midline. Non tender CARDIOVASCULAR: Regular rate and rhythm without murmurs, gallops, or rubs. RESPIRATORY: Clear to auscultation. Breath sounds equal bilaterally. No wheezes, rales, or rhonchi. GASTROINTESTINAL: Abdomen soft, RLQ/ R flank pain. EXTREMITIES: No edema or joint tenderness. BACK: Nontender without deformity or crepitance. No flank tenderness. NEURO: AOx3. SKIN: No rash or erythema of visible areas Initial Vital Signs Initial Vital Signs: Vital Signs Temperature 98.7 F 09/29/24 23:00 Pulse Rate 61 09/29/24 23:00 Respiratory Rate 18 09/29/24 23:00 Blood Pressure 196/96 H 09/29/24 23:00 Pulse Oximetry 98 09/29/24 23:00 Oxygen Delivery Method Room Air 09/29/24 23:00 Course Orders Ordered: ED Orders 09/29/24 23:15 Complete Blood Count AUTO DIFF Stat Comprehensive Metabolic Panel Stat Lactate (Lactic Acid) Stat Lipase Stat 09/29/24 23:33 Ictotest Urine Stat Urine Culture Stat Urine Microscopic Stat 09/29/24 23:37 CT abdomen pelvis w con Stat Discontinued Medications Lactated Ringer's (Lactated Ringers) 500 mls @ 1,000 mls/hr IV BOLUS ONE Stop: 09/30/24 00:06 Last Admin: 09/29/24 23:41 Dose: Not Given Documented By: LAURENT Lactated Ringer's (Lactated Ringers) 1,000 mls @ 1,000 mls/hr IV BOLUS ONE Stop: 09/30/24 00:39 Last Admin: 09/29/24 23:44 Dose: 1,000 mls/hr Documented By: LAURENT Ketorolac Tromethamine (Ketorolac 30 Mg/Ml Vial) 30 mg IV NOW ONE Stop: 09/29/24 23:40 Last Admin: 09/29/24 23:43 Dose: 30 mg Documented By: LAURENT Ondansetron HCl (Ondansetron 4 Mg/2 Ml Inj) 4 mg IV NOW ONE Stop: 09/29/24 23:21 Last Admin: 09/29/24 23:26 Dose: 4 mg Documented By: LAURENT Vital Signs Vital signs: Vital Signs - 8 hr 09/29/24 23:00 09/29/24 23:07 09/29/24 23:08 Temperature 98.7 F Pulse Rate 61 61 Respiratory Rate 18 Blood Pressure 196/96 H 187/91 H Pulse Oximetry 98 98 Oxygen Delivery Method Room Air [facility] - Abdominal Pain Lab Data 09/29/24 23:15 09/29/24 23:15 Labs: Lab Results 09/29/24 09/29/24 Range/Units 23:15 23:33 WBC 10.4 (4.5-11.0) X10^3/uL RBC 4.81 (4.5-5.9) X10^6/uL Hgb 15.3 (13.5-17.5) g/dL Hct 44.1 (41-53) % MCV 91.6 (80-100) fL MCH 31.7 (26-34) PG MCHC 34.6 (30-36) % RDW 14.4 (11.6-14.8) % Plt Count 318 (150-400) X10^3/uL Neut % (Auto) 76.0 H (50-75) % Lymph % (Auto) 13.4 L (25-40) % [place] % (Auto) 9.0 (3-14) % Eos % (Auto) 1.1 L (2-4) % Baso % (Auto) 0.5 (0-2) % Neut # (Auto) 7900 H (4666-8974) /uL Lymph # (Auto) 1400 (3530-6126) /uL [place] # (Auto) 900 (0-900) /uL Eos # (Auto) 100 (0-450) /uL Baso # (Auto) 100 (0-100) /uL Sodium 140 (137-145) mmol/L Potassium 3.6 (3.4-5.1) mmol/L Chloride 104 (98-107) mmol/L Carbon Dioxide 27 (22-32) mmol/L BUN 20 (9-20) mg/dL Creatinine 0.90 (0.66-1.25) mg/dL Estimated GFR > 60 (>60) mL/min BUN/Creatinine Ratio 22.2 H (6-22) Glucose 123 H (70-99) mg/dL Lactate 1.5 (0.7-2.1) mmol/L Calcium 8.9 (8.4-10.2) mg/dL Total Bilirubin 0.6 (0.2-1.3) mg/dL AST 30 (17-59) IU/L ALT 32 (<50) IU/L Alkaline Phosphatase 102 (38-126) U/L Total Protein 7.1 (6.3-8.2) g/dL Albumin 4.4 (3.5-5.0) g/dL Globulin 2.7 (1.7-4.1) g/dL Albumin/Globulin Ratio 1.6 (1.0-2.8) Lipase 68 (23-300) U/L Ur Bilirubin Confirm Negative (Negative) Urine RBC 10-30/hpf H (0-5/HPF) Urine WBC 0-1/hpf (0-5/HPF) Ur Squamous Epith Cells 1-5 /hpf (0-5/HPF) Urine Bacteria None seen (None) Hyaline Casts 0-1/lpf (None) Ur Culture Indicated? Cult not indicated Vol Urine Centrifuged 10ml (spun) Point of care testing: Urine Dip Bedside Urine Glucose Negative Bedside Urine Bilirubin + 1 Bedside Urine Ketone - Negative Urine Specific [place] 1.025 Bedside Urine Occult Blood +++ Bedside Urine pH 6.0 Bedside Urine Protein +/- 15 Bedside Urine Urobilinogen - Negative Bedside Urine Nitrite - Negative Bedside Urine Leukocytes - Negative Esterase Imaging Data CT scan - abdomen/pelvis: Radiologist's Impression: [place] [address] CT Scan Report Signed Patient: Thomas Soares MR#: [id number] : 1950 Acct:[id number] Age/Sex: 74 / M Date of Service: 09/29/24 Loc: ED Accession Number: [id number] Procedure: CT abdomen pelvis w con Ordering Provider: Isrrael Castro D.O. PROCEDURE: CT ABDOMEN PELVIS W CON INDICATIONS: abd pain/ hx of diverticulitis TECHNIQUE: After the administration of intravenous contrast, axial sections acquired from the lung bases to the pubic symphysis. Coronal and sagittal reformats were performed. For radiation dose reduction, the following was used: automated exposure control, adjustment of mA and/or kV according to patient size. COMPARISON: [facility], CT, CT ABDOMEN PELVIS W CON, 03/22/2018, 13:59. FINDINGS: Image quality: Diagnostic. Lower Chest: No significant findings. ABDOMEN: Liver: Cyst in the left liver is unchanged. Gallbladder: No radiopaque gallstones or wall thickening. Biliary ducts: No biliary dilation. Pancreas: No ductal dilation. Spleen: Size is within normal limits. Adrenal Glands: No adrenal nodules. Kidneys and Ureters: Obstructing calculus in the proximal right ureter measuring 0.6 cm, (2/81). Additional small nonobstructing right kidney stone x1; left x2. Mild left hydronephrosis. No solid renal mass. Stomach and Bowel: Sigmoid anastomosis. Area of suspected fat necrosis in the right pelvis is unchanged. No diverticulitis. The appendix is not dilated. No small bowel obstruction. Tiny hiatal hernia. The stomach is within normal limits. Peritoneum: No abnormal intraperitoneal fluid. No free air. Ventral Wall: Fat containing ventral abdominal wall hernia. Abdominal Nodes: No retroperitoneal or mesenteric adenopathy by size criteria. Vessels: Aorta and inferior vena cava are normal in size. PELVIS: Pelvic Organs: Prostatomegaly. Bladder: Stone in the urinary bladder measuring 1.8 cm. Pelvic Nodes: No enlarged lymph nodes. Miscellaneous: No inguinal hernias are seen. Bones: No aggressive osseous abnormality. IMPRESSION: 1. Obstructing right kidney stone in the proximal ureter measuring 0.6 cm. 2. Additional small nonobstructing kidney stones bilaterally. Stone in the urinary bladder. Dictated by: Albert Betts M.D. on 09/30/2024 at 0:50 Approved by: Albert Betts M.D. on 09/30/2024 at 1:01 MDM Narrative Medical decision making narrative: All lab work, vital signs, nurse triage note, medication list, and all previous ER including all imaging modalities reviewed. Pt given lactated ringer Toradol and Zofran here. Patient feels much better on reexamination. Discharged home on [place] Flomax and strainer. Differential diagnosis includes kidney stone kidney infection UTI. Discharge Plan Departure Patient Disposition: Home Clinical Impression: Kidney stone Instructions: DI for Kidney Stones Activity Restrictions/Additional Instructions: Return with new or worsening symptoms. Take your medicines as directed. Follow up with Dr. Gamble urologist and to call office for appointment. Prescriptions: New tamsulosin [Flomax] 0.4 mg capsule 0.4 mg PO DAILY Qty: 30 0RF hydrocodone-acetaminophen 5-325 mg tablet 1 tab PO Q6H PRN (Reason: pain) Qty: 20 0RF No Action lisinopril-hydrochlorothiazide 20 MG/25 MG tablet 1 tab PO QDAY Qty: 90 Referrals: Clayton Gamble MD [Physician] - Samson Morales MD [Primary Care Provider] - Stand Alone Forms: Patient Portal/API/Survey
[2024-09-30 00:30] VITALS: BP 127/60; PULSE 70; O2SAT 95
[2024-09-30 01:00] VITALS: BP 104/53; PULSE 81; O2SAT 95
[2024-09-30] MEDS: TAMSULOSIN 0.4 MG CAPSULE PO (01:25)
[2024-09-30] MEDS: HYDROCODONE/ACET 5/325 TABLET 1 TAB PO (01:25)
[2024-09-30 01:32] VITALS: BP 107/65; PULSE 62; RESP 14; O2SAT 95
== END 2024-09-30 01:32 | disposition home or self-care (01) ==
PROVIDERS: Emergency Provider Family Medicine; Family Provider Family Medicine; PCP Family Medicine
DX: N20.0 Calculus of kidney (principal)
CPT/HCPCS: 36415; 74177; 80053; 81003; 81015; 83605; 83690; 85025; 87086; 96361; 96374; 96375; 99284; J1885; J2405; Q9967

== ENCOUNTER 2024-10-01 17:06 | Emergency (ER) | payer MEDICARE, OTHER, SELFPAY ==
[2024-10-01] VITALS (14 sets, daily range): BP systolic 108–168; BP diastolic 55–80; PULSE 57–75; RESP 16–20; TEMP 36.9; O2SAT 93–97; BMI 32.3
--- NOTE | 2024-10-01 18:46 | ED_ITS ---
HPI - Male Genitourinary General Chief complaint: Urogenital-Male Stated complaint: rtrning from 09/29, kidney stones, getting worse Time Seen by Provider: 10/01/24 18:45 History of Present Illness HPI Narrative: 74-year-old gentleman history of diverticulitis hypertension history of kidney stones seen by me 2 days ago for kidney stone 6 mm given Flomax [place] a strainer to go home presents with continued pain in the right flank region radiating to the right lower quadrant. Patient reports pain medicine did not help help to today despite taking the medication as directed and had fever chills and body ache as well. Patient denies any nausea, vomiting, chest pain, shortness of breath, or hematuria. Other than what is stated 14 point review of system is negative. Related Data Home Medications Medication Instructions Recorded Confirmed lisinopril 20 1 tab PO QDAY ##90 09/03/17 09/29/24 mg-hydrochlorothiazide 25 mg tablet Previous Rx's Medication Instructions Recorded hydrocodone 5 mg-acetaminophen 325 1 tab PO Q6H PRN pain #20 tabs 09/30/24 mg tablet tamsulosin 0.4 mg capsule (Flomax) 0.4 mg PO DAILY #30 caps 09/30/24 ketorolac 10 mg tablet 10 mg PO Q6H PRN pain #20 tabs 10/01/24 Allergies Allergy/AdvReac Type Severity Reaction Status Date / Time No Known Drug Allergies Allergy Verified 11/15/18 19:14 Review of Systems Review of Systems ROS Unobtainable: All systems reviewed & are unremarkable except as noted in HPI and below Patient History Medical History (Updated 10/01/24 @ 21:51 by Isrrael Castro, ) Diverticulitis Chest pain Leg laceration Hypotension Laceration of lower leg, complicated Nephrolithiasis Surgical History History of colon resection Exam Narrative Exam Narrative: GENERAL: [74] year old patient appears stated age. Well-developed patient, in mild distress. HEAD: Atraumatic. Normocephalic. EYES: Pupils equal round and reactive. Extraocular motions intact. No scleral icterus. No injection or drainage. NECK: Trachea midline. Non tender CARDIOVASCULAR: Regular rate and rhythm without murmurs, gallops, or rubs. RESPIRATORY: Clear to auscultation. Breath sounds equal bilaterally. No wheezes, rales, or rhonchi. GASTROINTESTINAL: Abdomen soft, mild RLQ TTP, nondistended. EXTREMITIES: No edema or joint tenderness. BACK: Nontender without deformity or crepitance. No flank tenderness. NEURO: AOx3. SKIN: No rash or erythema of visible areas Initial Vital Signs Initial Vital Signs: Vital Signs Temperature 98.4 F 10/01/24 17:12 Pulse Rate 75 10/01/24 17:12 Respiratory Rate 16 10/01/24 17:12 Blood Pressure 156/76 H 10/01/24 17:12 Pulse Oximetry 97 10/01/24 17:12 Oxygen Delivery Method Room Air 10/01/24 17:12 Course Orders Ordered: ED Orders 10/01/24 18:50 XR KUB Stat Discontinued Medications Hydromorphone HCl (Hydromorphone 1 Mg Inj) 2 mg IV NOW ONE Stop: 10/01/24 18:51 Last Admin: 10/01/24 19:12 Dose: 2 mg Documented By: PIO Lactated Ringer's (Lactated Ringers) 1,000 mls @ 1,000 mls/hr IV BOLUS ONE Stop: 10/01/24 19:49 Last Admin: 10/01/24 19:10 Dose: 1,000 mls/hr Documented By: PIO Ketorolac Tromethamine (Ketorolac 30 Mg/Ml Vial) 15 mg IV NOW ONE Stop: 10/01/24 18:51 Last Admin: 10/01/24 19:11 Dose: 15 mg Documented By: PIO Vital Signs Vital signs: Vital Signs - 8 hr 10/01/24 17:12 10/01/24 17:18 10/01/24 17:18 Temperature 98.4 F Pulse Rate 75 71 Respiratory Rate 16 16 Blood Pressure 156/76 H 168/80 H Pulse Oximetry 97 95 Oxygen Delivery Method Room Air 10/01/24 17:30 10/01/24 17:30 10/01/24 17:59 Temperature Pulse Rate 70 70 Respiratory Rate 20 Blood Pressure 145/65 H Pulse Oximetry 95 95 Oxygen Delivery Method 10/01/24 18:00 10/01/24 18:00 10/01/24 18:30 Temperature Pulse Rate 71 71 Respiratory Rate 16 Blood Pressure 145/67 H Pulse Oximetry 95 94 Oxygen Delivery Method 10/01/24 18:30 10/01/24 19:00 10/01/24 19:00 Temperature Pulse Rate 71 Respiratory Rate Blood Pressure 125/59 L 129/63 Pulse Oximetry 94 Oxygen Delivery Method 10/01/24 19:23 10/01/24 19:23 10/01/24 19:30 Temperature Pulse Rate 68 67 Respiratory Rate 16 Blood Pressure 124/62 Pulse Oximetry 94 93 Oxygen Delivery Method 10/01/24 19:30 10/01/24 20:00 Temperature Pulse Rate 64 Respiratory Rate 16 Blood Pressure 108/55 L Pulse Oximetry 94 Oxygen Delivery Method MDM - Male Genitourinary Imaging Data Abdominal x-ray: Radiologist's Impression: [address] [address] XRay Report Signed Patient: Thomas Soares MR#: [id number] : 1950 Acct:[id number] Age/Sex: 74 / M Date of Service: 10/01/24 Loc: ED Accession Number: [id number] Procedure: XR KUB Ordering Provider: Isrrael Castro D.O. PROCEDURE: XR KUB INDICATIONS: kidney stone TECHNIQUE: One view of the abdomen acquired. COMPARISON: [facility], CT, CT ABDOMEN PELVIS W CON, 09/29/2024, 23:46. FINDINGS: Surgical changes and devices: None. Bowel: Prominent fecal residue in the colon. Scattered small bowel gas. Soft tissues: The stone in the proximal right ureter seen on recent CT is not appreciated. Small nonobstructing left kidney stone is seen. Stone in the bladder is again seen. No suspicious abdominal calcifications. Visualized solid organ contours appear normal in size. Left groin mesh. Bones: No suspicious bony lesions. Moderate bilateral hip DJD. IMPRESSION: The stone in the proximal right ureter seen on recent CT is not appreciated. However, there is fecal residue which could obscure the small stone. Dictated by: Albert Betts M.D. on 10/01/2024 at 20:49 Approved by: Albert Betts M.D. on 10/01/2024 at 20:53 [facility] Narrative Medical decision making narrative: All lab work vital signs nurse triage note medication list and KUB reviewed. Patient given lactated Ringer's 1 L bolus Toradol IV and Dilaudid IV. KUB shows stone in proximal right ureter not appreciated but there is fecal residue which could obscure the small stone. Differential diagnosis includes kidney stone kidney infection UTI. Case discussed with Dr. Gamble urologist on-call who recommended to double up on Flomax tip 0.8 mg daily and to give ketorolac pills and apply heat to affected area and the office will call him in the morning. Discharge Plan Departure Patient Disposition: Home Clinical Impression: Kidney stone Instructions: DI for Kidney Stones Activity Restrictions/Additional Instructions: Return with new or worsening symptoms. Take 2 pills of Flomax daily instead of 1. Please take ketorolac for pain control along with [place]. Dr. Gamble his office will call you for an appointment. Prescriptions: New ketorolac 10 mg tablet 10 mg PO Q6H PRN (Reason: pain) Qty: 20 0RF Rx Instructions: maximum total duration of 5 days from all oral, intranasal, or parenteral formulations No Action lisinopril-hydrochlorothiazide 20 MG/25 MG tablet 1 tab PO QDAY Qty: 90 tamsulosin [Flomax] 0.4 mg capsule 0.4 mg PO DAILY Qty: 30 0RF hydrocodone-acetaminophen 5-325 mg tablet 1 tab PO Q6H PRN (Reason: pain) Qty: 20 0RF Referrals: Samson Morales MD [Primary Care Provider] - Stand Alone Forms: Patient Portal/API/Survey
--- NOTE | 2024-10-01 18:50 | DI.RAD.S_ITS ---
PROCEDURE: XR KUB INDICATIONS: kidney stone TECHNIQUE: One view of the abdomen acquired. COMPARISON: [facility], CT, CT ABDOMEN PELVIS W CON, 09/29/2024, 23:46. FINDINGS: Surgical changes and devices: None. Bowel: Prominent fecal residue in the colon. Scattered small bowel gas. Soft tissues: The stone in the proximal right ureter seen on recent CT is not appreciated. Small nonobstructing left kidney stone is seen. Stone in the bladder is again seen. No suspicious abdominal calcifications. Visualized solid organ contours appear normal in size. Left groin mesh. Bones: No suspicious bony lesions. Moderate bilateral hip DJD. IMPRESSION: The stone in the proximal right ureter seen on recent CT is not appreciated. However, there is fecal residue which could obscure the small stone. Dictated by: Albert Betts M.D. on 10/01/2024 at 20:49 Approved by: Albert Betts M.D. on 10/01/2024 at 20:53
[2024-10-01] MEDS: LACTATED RINGERS 1,000 ML 1000 ML IV (19:10)
[2024-10-01] MEDS: KETOROLAC 30 MG/ML VIAL 15 MG IV (19:11)
[2024-10-01] MEDS: HYDROMORPHONE 1 MG INJ 2 MG IV (19:12)
== END 2024-10-01 22:11 | disposition home or self-care (01) ==
PROVIDERS: Emergency Provider Family Medicine; Family Provider Family Medicine; PCP Family Medicine
DX: N20.0 Calculus of kidney (principal)
CPT/HCPCS: 36415; 74018; 96361; 96374; 96375; 99284; J1171; J1885

== ENCOUNTER → 2024-10-03 12:57 | Outpatient (CLI) | payer MEDICARE, OTHER, SELFPAY ==
--- NOTE | 2024-10-03 13:00 | DI.RAD.S_ITS ---
PROCEDURE: XR KUB INDICATIONS: Kidney stone TECHNIQUE: One view of the abdomen acquired. COMPARISON: [facility], CR, XR KUB, 10/01/2024, 19:31. FINDINGS: Stool gas pattern: Mild ileus noted.. No free intraperitoneal or extraperitoneal air. No gross evidence of ascites Soft tissues: 4 mm calcification overlying the inferior pole of the right kidney and 3 mm calcification overlying the inferior pole left kidney are likely represent stones. Organs: No gross evidence for organomegaly. IMPRESSION: Small calcifications overlying both inferior kidneys are likely stones. Mild ileus Dictated by: Isrrael Clayton M.D. on 10/04/2024 at 10:15 Approved by: Isrrael Clayton M.D. on 10/04/2024 at 10:17
== END ==
PROVIDERS: Family Provider Family Medicine; PCP Student in an Organized Health Care Education/Training Program; Referring Provider Urology; Visit Provider Urology
DX: N20.0 Calculus of kidney (principal); K56.7 Ileus, unspecified
CPT/HCPCS: 74018; 81002; 99214

== ENCOUNTER 2024-10-20 08:55 | Emergency (ER) | payer MEDICARE, OTHER, SELFPAY ==
[2024-10-20] VITALS (15 sets, daily range): BP systolic 137–190; BP diastolic 67–91; PULSE 55–63; RESP 14–24; TEMP 36.4; O2SAT 94–99; BMI 31.1
[2024-10-20] MEDS: ONDANSETRON 4 MG/2 ML INJ IV (09:41)
[2024-10-20 09:51] LABS: Add Manual Diff / Slide Review NO; Basophils Absolute Auto 100 /uL (0-100); Basophils Percent Auto 0.7 % (0-2); Eosinophils Absolute Auto 100 /uL (0-450); Eosinophils Percent Auto 0.5 % (2-4); Hemoglobin 14.8 g/dL (13.5-17.5); Lymphocytes Absolute Auto 700 /uL (1100-4500); Lymphocytes Percent Auto 6.8 % (25-40); Mean Corpuscular HGB Conc 33.7 % (30-36); Mean Corpuscular Hemoglobin 31.3 PG (26-34); Monocytes Absolute Auto 800 /uL (0-900); Monocytes Percent Auto 7.1 % (3-14); Neutrophils Absolute Auto 9000 /uL (1500-7000); Neutrophils Percent Auto 84.9 % (50-75); Platelet Count 335 X10^3/uL (150-400); Red Blood Cell Count 4.74 X10^6/uL (4.5-5.9); Red Cell Distribution Width 14.6 % (11.6-14.8); White Blood Cell Count 10.6 X10^3/uL (4.5-11.0)
[2024-10-20 10:05] LABS: Alanine Aminotransferase 26 IU/L (<50); Albumin 4.2 g/dL (3.5-5.0); Albumin Globulin Ratio 1.5 (1.0-2.8); Alkaline Phosphatase 87 U/L (38-126); Aspartate Aminotransferase 30 IU/L (17-59); BUN Creatinine Ratio 21.4 (6-22); Bilirubin Total 0.7 mg/dL (0.2-1.3); Blood Urea Nitrogen 22 mg/dL (9-20); Calcium 8.8 mg/dL (8.4-10.2); Carbon Dioxide 27 mmol/L (22-32); Chloride 108 mmol/L (98-107); Estimated Glomerular Filt Rate > 60 mL/min (>60); Globulin 2.8 g/dL (1.7-4.1); Glucose 129 mg/dL (70-99); HEMOLYSIS < 15 (0-50); Lipase 46 U/L (23-300); Potassium 3.9 mmol/L (3.4-5.1); Sodium 143 mmol/L (137-145)
[2024-10-20 10:15] LABS: Bacteria Urine Occasional (0-1); RBC Urine 30-100/HPF (0-5/HPF); Squamous Epithelial Cell Urine 0-1 /HPF (0-5/HPF); Urine Volume 10mL (spun); WBC Urine 1-5/HPF (0-5/HPF)
[2024-10-20 10:16] LABS: Culture Indicated Urine Cult Not Indicated
--- NOTE | 2024-10-20 10:28 | ED_ITS ---
HPI - General Adult General Chief complaint: Abdominal Pain Stated complaint: KIDNEY STONE ATTACK Time Seen by Provider: 10/20/24 09:41 Source: patient Mode of arrival: Ambulatory History of Present Illness HPI narrative: 74-year-old male with history of kidney stones, has right-sided flank pain and right lower quadrant pain, prior Urology interventions 10 years ago, no more recent urological interventions, has been seen here with ongoing right-sided pain to previous visits in the last couple of weeks, right-sided kidney stone, awaiting follow up appointment that was scheduled today with urologist Dr. Gamble, however Dr. Gamble is out sick. He is taking current regimen of oral hydrocodone/APAP, oral Toradol, oral tamsulosin. Related Data Home Medications Medication Instructions Recorded Confirmed lisinopril 20 1 tab PO QDAY ##90 09/03/17 10/03/24 mg-hydrochlorothiazide 25 mg tablet Previous Rx's Medication Instructions Recorded hydrocodone 5 mg-acetaminophen 325 1 tab PO Q6H PRN pain #20 tabs 09/30/24 mg tablet tamsulosin 0.4 mg capsule (Flomax) 0.4 mg PO DAILY #30 caps 09/30/24 ketorolac 10 mg tablet 10 mg PO Q6H PRN pain #20 tabs 10/01/24 peg 3350-electrolytes 236 240 ml PO Q10M #4,000 mL 10/02/24 gram-22.74 gram-6.74 gram-5.86 gram solution (Golytely) Allergies Allergy/AdvReac Type Severity Reaction Status Date / Time No Known Drug Allergies Allergy Verified 10/03/24 14:24 Patient History Medical History (Updated 10/20/24 @ 13:59 by Jean Claude Torres MD) Right ureteral calculus Right renal stone Asymptomatic microscopic hematuria Bladder calculus Diverticulitis Chest pain Leg laceration Hypotension Laceration of lower leg, complicated Nephrolithiasis Surgical History History of colon resection Family History Father Cancer Social History marital status: number of children: 5 Smoking Status: Never smoker alcohol intake: never caffeine: Yes Type(s) of exercise: walking Smoking Status: Never smoker Exam Narrative Exam Narrative: GENERAL:Well-developed patient, in mild distress. HEAD: Atraumatic. Normocephalic. EYES: Pupils equal round and reactive. Extraocular motions intact. No scleral icterus. No injection or drainage. ENT: Nose without bleeding, purulent drainage. Throat without erythema, tonsillar hypertrophy or exudate. Airway patent. NECK: Trachea midline. Non tender CARDIOVASCULAR: Regular rate and rhythm without murmurs, gallops, or rubs. RESPIRATORY: Clear to auscultation. Breath sounds equal bilaterally. No wheezes, rales, or rhonchi. GASTROINTESTINAL: Abdomen soft, non-tender, nondistended. EXTREMITIES: No edema or joint tenderness. BACK: Nontender without deformity or crepitance. No flank tenderness. NEURO: AOx3. Motor functions grossly nonfocal SKIN: No rash or erythema of visible areas Initial Vital Signs Initial Vital Signs: Vital Signs Pulse Rate 63 10/20/24 09:20 Blood Pressure 186/91 H 10/20/24 09:20 Pulse Oximetry 98 10/20/24 09:20 Course Orders Ordered: Discontinued Medications Hydromorphone HCl (Hydromorphone 1 Mg Inj) 1 mg IV NOW ONE Stop: 10/20/24 12:18 Last Admin: 10/20/24 12:34 Dose: 1 mg Documented By: BAO Hydromorphone HCl (Hydromorphone 0.5 Mg Inj) 0.5 mg IV NOW ONE Stop: 10/20/24 13:26 Last Admin: 10/20/24 14:08 Dose: 0.5 mg Documented By: RB Ondansetron HCl (Ondansetron 4 Mg/2 Ml Inj) 4 mg IV NOW PRN PRN Reason: Nausea And Vomiting Last Admin: 10/20/24 09:41 Dose: 4 mg Documented By: BAO Ondansetron HCl (Ondansetron 4 Mg Odt) 4 mg PO NOW PRN PRN Reason: Nausea And Vomiting Ondansetron HCl (Ondansetron 4 Mg/2 Ml Inj) 4 mg IV NOW ONE Stop: 10/20/24 12:18 Last Admin: 10/20/24 13:25 Dose: Not Given Documented By: ES Vital Signs Vital signs: Vital Signs - 8 hr 10/20/24 13:00 10/20/24 13:00 10/20/24 13:30 Pulse Rate 61 58 L Respiratory Rate 22 19 Blood Pressure 160/87 H Pulse Oximetry 95 94 10/20/24 13:30 10/20/24 14:00 10/20/24 14:00 Pulse Rate 57 L Respiratory Rate 16 Blood Pressure 140/69 154/74 H Pulse Oximetry 95 10/20/24 14:30 10/20/24 14:30 Pulse Rate 55 L Respiratory Rate 20 Blood Pressure 137/67 Pulse Oximetry 95 Medical Decision Making Lab Data 10/20/24 09:36 10/20/24 09:36 Labs: Lab Results 10/20/24 10/20/24 Range/Units 09:36 09:57 WBC 10.6 (4.5-11.0) X10^3/uL RBC 4.74 (4.5-5.9) X10^6/uL Hgb 14.8 (13.5-17.5) g/dL Hct 44.0 (41-53) % MCV 93.0 (80-100) fL MCH 31.3 (26-34) PG MCHC 33.7 (30-36) % RDW 14.6 (11.6-14.8) % Plt Count 335 (150-400) X10^3/uL Neut % (Auto) 84.9 H (50-75) % Lymph % (Auto) 6.8 L (25-40) % [place] % (Auto) 7.1 (3-14) % Eos % (Auto) 0.5 L (2-4) % Baso % (Auto) 0.7 (0-2) % Neut # (Auto) 9000 H (8818-9073) /uL Lymph # (Auto) 700 L (6137-2806) /uL [place] # (Auto) 800 (0-900) /uL Eos # (Auto) 100 (0-450) /uL Baso # (Auto) 100 (0-100) /uL Sodium 143 (137-145) mmol/L Potassium 3.9 (3.4-5.1) mmol/L Chloride 108 H (98-107) mmol/L Carbon Dioxide 27 (22-32) mmol/L BUN 22 H (9-20) mg/dL Creatinine 1.03 (0.66-1.25) mg/dL Estimated GFR > 60 (>60) mL/min BUN/Creatinine Ratio 21.4 (6-22) Glucose 129 H (70-99) mg/dL Calcium 8.8 (8.4-10.2) mg/dL Total Bilirubin 0.7 (0.2-1.3) mg/dL AST 30 (17-59) IU/L ALT 26 (<50) IU/L Alkaline Phosphatase 87 (38-126) U/L Total Protein 7.0 (6.3-8.2) g/dL Albumin 4.2 (3.5-5.0) g/dL Globulin 2.8 (1.7-4.1) g/dL Albumin/Globulin Ratio 1.5 (1.0-2.8) Lipase 46 (23-300) U/L Urine RBC 30-100/hpf H (0-5/HPF) Urine WBC 1-5/hpf (0-5/HPF) Ur Squamous Epith Cells 0-1 /hpf (0-5/HPF) Urine Bacteria Occasional (0-1) (None) Ur Culture Indicated? Cult not indicated Vol Urine Centrifuged 10ml (spun) Urine Dip Bedside Urine Glucose Negative Bedside Urine Bilirubin - Negative Bedside Urine Ketone - Negative Urine Specific [place] 1.025 Bedside Urine Occult Blood +++ Bedside Urine pH 6.0 Bedside Urine Protein +/- 15 Bedside Urine Urobilinogen - Negative Bedside Urine Nitrite - Negative Bedside Urine Leukocytes - Negative Esterase Point of care testing: Urine Dip Bedside Urine Glucose Negative Bedside Urine Bilirubin - Negative Bedside Urine Ketone - Negative Urine Specific [place] 1.025 Bedside Urine Occult Blood +++ Bedside Urine pH 6.0 Bedside Urine Protein +/- 15 Bedside Urine Urobilinogen - Negative Bedside Urine Nitrite - Negative Bedside Urine Leukocytes - Negative Esterase [facility] Narrative Medical decision making narrative: 74-year-old male with ongoing kidney pain right-sided, recently seen, taking oral opiate and Toradol and tamsulosin. Presents again with right-sided pain, unable to make his appointment with Urology today due to Dr. Gamble illness and canceled urology clinic. Afebrile, sirs screen negative labs pending. DDx consider pain due to interval migration right ureteral stone, persisting stone position with ureteral spasm, interval UTI, new stone migrating down same ureter, other. CT abdomen and pelvis noncontrast ordered from triage. Impressions: ?4 mm right distal ureteral stone with moderate right-sided hydronephrosis and hydroureter with perinephric and periureteral fat stranding. Bilateral nonobstructing renal stones and bladder stone not significantly changed from prior study. No gross bladder wall abnormalities. No left-sided hydronephrosis or hydroureter. No bowel obstruction or abnormal bowel wall thickening. No free fluid or free air. No abscess collection. Chronic changes as above not significantly changed from prior study. ? See radiology report. Urine dip negative. Copy of report given to patient with explanation of findings. Unchanged. Follow up with Dr. Gamble Urology as planned. Continue medications above. Return precautions discussed. Discharged home with family. Discharge Plan Departure Patient Disposition: Home Clinical Impression: Right ureteral stone Activity Restrictions/Additional Instructions: Ongoing right-sided pain, still taking opioid analgesic with Tylenol, still taking her tamsulosin expulsive therapy, still taking oral Toradol anti- inflammatory pain medication. CT abdomen and pelvis imaging today showed unchanged position of 4 mm ureteral stone. No fever on triage. Vital signs normal. Urine dip negative seems unlikely for infection. Hold antibiotics for now. Follow up with your urologist as planned, visit was planned with Dr. Gamble earlier today but rescheduled due to his illness. Take above medications as directed. Follow up with urologist. Continue taking your chronic medications as directed. Return to this/nearest emergency department for any change worsening symptoms or any concerns prior. Prescriptions: No Action lisinopril-hydrochlorothiazide 20 MG/25 MG tablet 1 tab PO QDAY Qty: 90 peg 3350-electrolytes [Golytely] 236-22.74-6.74 -5.86 gram recon soln 240 ml PO Q10M Qty: 4000 0RF Rx Instructions: until fecal effluent is clear ketorolac 10 mg tablet 10 mg PO Q6H PRN (Reason: pain) Qty: 20 0RF Rx Instructions: maximum total duration of 5 days from all oral, intranasal, or parenteral formulations tamsulosin [Flomax] 0.4 mg capsule 0.4 mg PO DAILY Qty: 30 0RF hydrocodone-acetaminophen 5-325 mg tablet 1 tab PO Q6H PRN (Reason: pain) Qty: 20 0RF Referrals: Mahogany Zapata DO [Primary Care Provider] - Clayton Gamble MD [Physician] - Stand Alone Forms: Patient Portal/API/Survey
--- NOTE | 2024-10-20 10:29 | DI.CT.S_ITS ---
PROCEDURE: CT ABDOMEN PELVIS WO CON INDICATIONS: abd/flank pain TECHNIQUE: Axial sections were acquired from the lung bases to the pubic symphysis. Coronal and sagittal reformats were performed. For radiation dose reduction, the following was used: automated exposure control, adjustment of mA and/or kV according to patient size. COMPARISON: [facility], CT, CT ABDOMEN PELVIS W CON, 09/29/2024, 23:46. FINDINGS: Image quality: Diagnostic. Lower Chest: Scattered scarring/atelectasis in posterior and lateral periphery of bilateral lower lung dodd are seen. Heart size is mildly enlarged, no pericardial effusion. Small hiatal hernia. URINARY: Right Kidney: There is [id number] right-sided hydronephrosis and moderate right perinephric fat stranding. 5 mm nonobstructing stone in lower pole right kidney is seen. Right Ureter: There is [id number] right-sided hydroureter and periureteral fat stranding. 4 mm right distal ureteral stone is seen series 2, image 133. Left Kidney: Nonobstructing stones are seen scattered in left kidney measures up to 6 mm in size. No hydronephrosis. Left Ureter: No hydroureter. Bladder: No gross bladder wall abnormality. 1.5 cm calcified stone is noted within dependent portion of bladder lumen and measures 1035 Hounsfield unit in density. ABDOMEN: Liver: No contour-deforming solid mass. Moderate hepatic steatosis. Gallbladder: No radiopaque gallstones or wall thickening. Biliary ducts: No biliary dilation. Pancreas: No ductal dilation. Spleen: Size is within normal limits. Adrenal Glands: No adrenal nodules. Stomach and Bowel: There is no bowel obstruction. No gastric or small bowel wall thickening. Mild fecal stasis in the colon is seen. Postsurgical changes are noted in rectal sigmoid region with surgical anastomosis appears grossly intact. No abscess collection. Mild colonic diverticulosis without CT evidence of acute diverticulitis. Possible focal fat necrosis in right lower pelvis unchanged from prior study. Peritoneum: No abnormal intraperitoneal fluid. No free air. Ventral Wall: No hernia. Abdominal Nodes: No enlarged retroperitoneal or mesenteric lymph nodes. Vessels: Aorta and inferior vena cava are normal in size. PELVIS: Pelvic Organs: Unremarkable. Pelvic Nodes: Unremarkable. Miscellaneous: No inguinal hernias are seen. Bones: No gross aggressive appearing bony lesions. IMPRESSION: 1. 4 mm right distal ureteral stone with moderate right-sided hydronephrosis and hydroureter with perinephric and periureteral fat stranding. 2. Bilateral nonobstructing renal stones and bladder stone not significantly changed from prior study. No gross bladder wall abnormalities. No left-sided hydronephrosis or hydroureter. 3. No bowel obstruction or abnormal bowel wall thickening. No free fluid or free air. No abscess collection. 4. Chronic changes as above, not significantly changed from prior study. Dictated by: Jj Lin M.D. on 10/20/2024 at 10:48 Approved by: Jj Lin M.D. on 10/20/2024 at 10:56
[2024-10-20] MEDS: HYDROMORPHONE 1 MG INJ IV (12:34)
[2024-10-20] MEDS: HYDROMORPHONE 0.5 MG INJ IV (14:08)
== END 2024-10-20 14:51 | disposition home or self-care (01) ==
PROVIDERS: Emergency Provider Emergency Medicine; Family Provider Family Medicine; PCP Student in an Organized Health Care Education/Training Program
DX: N13.2 Hydronephrosis with renal and ureteral calculous obstruction (principal); Z87.442 Personal history of urinary calculi
CPT/HCPCS: 36415; 74176; 80053; 81003; 81015; 83690; 85025; 96374; 96375; 96376; 99284; J1171; J2405

== ENCOUNTER 2024-11-24 07:21 | Day surgery (SDC) | payer MEDICARE, OTHER, SELFPAY ==
[2024-11-17 08:21] VITALS: BMI 31.1
[2024-11-24] VITALS (7 sets, daily range): BP systolic 98–156; BP diastolic 61–82; PULSE 21–68; RESP 15–92; TEMP 36.2–36.4; O2SAT 93–98
--- NOTE | 2024-11-24 07:09 | DI.RAD.S_ITS ---
PROCEDURE: XR ABDOMEN 2V INDICATIONS: STENT PLACEMENT RIGHT TECHNIQUE: Two views of the abdomen acquired. COMPARISON: None. FINDINGS: Two intraoperative spot radiographs demonstrate right ureteral double-J stent with the proximal and coiled at the expected location of the right renal pelvis and the distal and partially coiled at the expected location of the right side of the urinary bladder. Morton catheter is noted at the midline. Anchors from probable remote hernia repair with mesh are noted left hemipelvis. Fluoro time is not delineated. IMPRESSION: Intraoperative fluoroscopy as discussed above with placement of right ureteral stent. Dictated by: Behzad Cruz M.D. on 11/24/2024 at 12:33 Approved by: Behzad Cruz M.D. on 11/24/2024 at 12:49
[2024-11-24] MEDS: LACTATED RINGERS 1,000 ML 42 ML IV ×2 (08:36→11:43)
[2024-11-24] MEDS: FAMOTIDINE 20 MG/2 ML VIAL IV (08:39)
--- NOTE | 2024-11-24 09:20 | PM.PREOP ---
Pre-operative Note COVID-19 COVID-19 status: Not tested Interval Note History & Physical reviewed/Exam performed by Physician: Yes Changes to H&P: No
[2024-11-24] MEDS: levoFLOXacin 500 MG/100 ML PIGGYBACK 100 MG IV (10:00)
--- NOTE | 2024-11-24 10:10 | SUR.OPER ---
Lithotomy on padded OR bed, head on pillow, arms secured on padded arm boards at <90 degrees abduction. Legs secured in padded yellow fins stirrups.
[2024-11-24] MEDS: iopamidoL 30 ML VIAL INJ (10:31)
[2024-11-24] MEDS: OXYCODONE IR 5 MG TABLET PO (11:43)
[2024-11-24] MEDS: PHENAZOPYRIDINE 100 MG TABLET 200 MG PO (11:43)
[2024-11-24] MEDS: hydrOXYzine HCL 25 MG TABLET PO (11:43)
--- NOTE | 2024-11-24 11:47 | PM.OP.1 ---
Operative Date/Time/Diagnoses Date of procedure: 11/24/24 Time of procedure: 10:00 Pre-op diagnosis: Large bladder stones, right ureteral calculus Post-op diagnosis: same Procedure & Clinicians Procedure: Cystoscopy Cystolithalopaxy Right retrograde ureteropyelogram Right ureteroscopy Right ureteral stent placement Same procedure(s) as scheduled: Yes Indications: 74 y/o M w/ extensive h/o nephrolithiasis who currently has a 6mm right distal ureterolith and a large bladder calculus. Discussed treatment options to include continued medical expulsion therapy (not recommended as he has been doing this for more than 6 weeks and continues to have pain/discomfort and that I do not believe he will be able to pass this large stone on his own) vs cystoscopy, cystolithalopaxy, right ureteroscopy ureteroscopy, laser lithotripsy with right ureteral stent placement. Discussed risks of the procedure to include but not limited to pain, bleeding, infection, injury to urethra/bladder/ureter, inability to access the ureter requiring discussion with Interventional Radiology regarding a possible ureteral stent placement in an antegrade fashion vs a possible nephroureteral stent and/or percutaneous nephrostomy tube, urinary tract infection, inability to remove all of the stone in one setting, need for emergent open repair of bladder and/or ureter, need for multiple ureteroscopic interventions necessary to render the patient stone free. He consented to the aforementioned surgery, however, does not want me to clean out the inside of his right kidney. He would only like me to address his large bladder stone and distal right ureteral stone. Surgeon: Brian Ren Click Yes if Unassisted: Yes Anesthesia Type: General Operative Notes Findings: Two large bladder stones, moderate sized right distal ureteral stone Specimen(s): other (right ureteral stone) Applied: catheter Estimated Blood Loss (mL): 20 Blood products transfused: none Procedure in detail: Patient was identified in the preoperative holding area and consent confirmed. He was then brought to the operating room where general anesthesia was induced.? He was placed in the low lithotomy position. He was then prepped and draped in the usual sterile fashion. A surgical timeout was conducted and all were in agreement. Access to the bladder was obtained via a 30 degree cystoscope.? Complete cystoscopy was then performed and no concerning bladder masses or lesions were appreciated.? Bilateral ureteral orifices were easily identified and noted to be orthotopic in nature.? He was noted to have coaptating lateral prostatic lobes and a large intravesical median lobe. He was also noted to have two large bladder stones. Laser lithotripsy was performed utilizing a 365 micron laser fiber. All stone fragments were then manually evacuated from his bladder and sent for chemical analysis. The right ureteral orifice was then cannulated using a 0.035 sensor tip ureteral guidewire and a 5Fr ureteral catheter was advanced over the guidewire and into the distal right ureter.? The guidewire was then removed and a retrograde ureteropyelogram was performed which noted a filling defect in the distal right ureter concerning for a stone.? The ureteral guidewire was then readvanced through the ureteral catheter and into the right renal pelvis.? The ureteral catheter was then removed and a semirigid ureteroscope was easily advanced into his right ureter alongside the guidewire and to the level of the stone.? The stone was then manually removed via the stone basket.? The ureter was then directly visualized upon removal of the ureteroscope and noted to be stone free.? A 6Fr multi-length JJ ureteral stent with strings was then advanced over the ureteral guidewire.? Upon removal of the guidewire, a good curl was noted in the right renal pelvis and the bladder using fluoroscopy.? The bladder was then drained and an 18Fr cole catheter was inserted into his bladder. 10cc of sterile water was utilized for balloon insufflation.? Anesthesia was reversed, he was extubated in the OR and transferred to the PACU in stable condition for recovery. Complications: none Post-operative Condition: stable Disposition: PACU Plan for aftercare: Discharge home from PACU. Will return to Urology clinic to have his catheter and stent removed next week.
[2024-12-04 16:36] LABS: Ca oxalate monohydr 50 % (.); Size 3x5 mm (.); Uric Acid 50 % (.)
== END 2024-11-24 12:30 | disposition home or self-care (01) ==
PROVIDERS: Family Provider Family Medicine; PCP Student in an Organized Health Care Education/Training Program; Referring Provider Urology; Visit Provider Urology
PROC: (CPT 52318; principal; 2024-11-24 09:15)
DX: N21.0 Calculus in bladder (principal); N20.1 Calculus of ureter
CPT/HCPCS: 52318; 52332; 52320; 74018; 76000; 82365; A9270; C2617; J1100; J1956; J2405; J2704; J3010; J3490; Q9967